=== PATIENT | male | born 1960 | race Caucasian/White ===

== ENCOUNTER 2022-11-14 16:38 | Inpatient (IN) ==
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
[2022-11-14] MEDS ORDERED: ACETAMINOPHEN 325 MG TABLET PO ONE (17:01)
[2022-11-14] MEDS ORDERED: HYDROmorphone 0.5 MG/0.5 ML SYRINGE IV ONE (17:01)
[2022-11-14] MEDS ORDERED: VANCOMYCIN 1,000 MG in 0.9 % SODIUM CHLORIDE 250 ML IV ONE (17:12)
[2022-11-14] MEDS ORDERED: PIPERACILLIN SODIUM/TAZOBACTAM 3.375 GM in DEXTROSE 5% IN WATER 50 ML IV SCH (17:15)
[2022-11-14 17:31] LABS: POC Calcium, Ionized 1.2 (1.16-1.32); POC Creatinine 0.7 (0.6-1.2); POC Potassium 3.9 (3.3-5.1)
--- NOTE | 2022-11-14 17:52 | XRay Report ---
HISTORY: Fever, former smoker, abdominal pain and vomiting blood FINDINGS: Heart is mildly enlarged but magnified by portable technique. There is no congestive heart failure or pleural effusion. Behind the left heart border there is a wedge-shaped band of consolidated lung parenchyma which is larger today than it had been on 08/19/16. This could be a combination of scar and atelectasis. The remainder of the lung [place] are clear. Aorta is mildly tortuous. There is moderate arthritis in the right shoulder. Humeral head is subluxed superiorly suggesting a rotator cuff tear. IMPRESSION: Mild cardiomegaly Scar versus atelectasis in the left lower lobe Interpreted and Authenticated by: Erickson De La Rosa 11/14/22
[2022-11-14 17:55] LABS: Basophils # (Auto) 0.03 K/mcL (0.00-0.30); Basophils % (Auto) 0.3 % (0.0-2.0); Eosinophils # (Auto) 0 K/mcL (0.00-0.70); Eosinophils % (Auto) 0 % (0.0-7.0); Hematocrit 43.4 % (40.1-51.0); Hemoglobin 13.8 g/dL (13.7-17.5); Lymphocytes # (Auto) 1.05 K/mcL (1.50-4.80); Lymphocytes % (Auto) 9.9 % (15.5-49.0); Mean Cell Volume 90.6 fL (80.0-100.0); Mean Corpuscular HGB Conc 31.8 g/dL (31.0-36.0); Mean Platelet Volume 9.1 fL (8.8-12.5); Monocytes # (Auto) 0.54 K/mcL (0.10-0.90); Monocytes % (Auto) 5.1 % (1.0-12.0); Neutrophils % (Auto) 84.2 % (38.0-78.0); Platelet Count 377 K/mcL (140-440); RBC 4.79 M/mcL (4.63-6.08); Red Cell Distribution Width 14.8 % (11.5-14.5); WBC 10.6 K/mcL (4.5-11.0)
[2022-11-14 18:00] LABS: Appearance,Urine TURBID (Clear); Bilirubin,Urine Negative (Negative); Color,Urine YELLOW; Culture Indicated,Urine yes; Glucose,Urine (UA) Negative (Negative); Ketones,Urine Negative (Negative); Leukocyte Esterase,Urine 250 /uL (Negative); Nitrate,Urine POS (Negative); Protein,Urine 100 mg/dL (Negative); Specific Gravity,Urine 1.017 (1.000-1.035); Urine RBC 35 /hpf (0-3); Urine Squamous Epithelial Cell 0 /hpf (0-4); Urine WBC > 182 /hpf (0-4); Urobilinogen,Urine Negative
[2022-11-14] MEDS ORDERED: ONDANSETRON 4 MG/2 ML VIAL IV ONE (18:00)
[2022-11-14 18:08] LABS: Prothrombin Time 13.5 sec (11.9-14.5)
[2022-11-14 18:21] LABS: ALT/SGPT 37 U/L (<40); AST/SGOT 66 U/L (<40); Albumin 3.7 gm/dL (3.2-5.2); Alkaline Phosphatase 146 U/L (39-117); Bilirubin,Direct 0.2 mg/dL (<0.3); Bilirubin,Total 0.7 mg/dL (0.1-1.0); Globulin 4.2 gm/dL (2.2-3.7)
[2022-11-14] MEDS ORDERED: PANTOPRAZOLE 40 MG VIAL IV ONE (18:32)
[2022-11-14] MEDS ORDERED: MAG HYDROX/AL HYDROX/SIMETH 30 ML ORAL.SUSP PO ONE (18:32)
--- NOTE | 2022-11-14 19:53 | Internal Med History&Physical ---
HPI History of Present Illness Patient information: Note initiated : 11/14/22 at 7:47 pm Service Date, if different from initiated Date: [] Patient: Clarence Verdugo a 62 y/o M admitted on for Abd. Pain/Vomited Blood. Chief Complaint: [Abdominal pain] Chief complaint: Hematemesis History of present illness: Mr. Verdugo is a 62 year old M with a past medical history significant for paraplegia, decubitus wounds, suprapubic catheter, seizures, and insulin- dependent diabetes mellitus who presents to the hospital with 3 to 4-day history of abdominal discomfort, inappetence associated with nausea and vomiting. The patient overall is a poor historian and simply states that he was feeling unwell over the last several days. He has not been eating or drinking much. He denies NSAID or aspirin use. He denies any history of heavy drinking. The patient states that he does have a prior history of GERD however does not take medications for acid reflux. He does have a suprapubic catheter in place which was recently changed 1 week ago he states. He comes from adult family home. On arrival he was hemodynamically stable and afebrile. His white blood cell count was 10.6, H&H was 13.8 and 43.4 and his creatinine was 0.7. His UA was grossly abnormal. His lactic acid was elevated at 2.8. He was found to have a blood pressure of 90/53 and a heart rate of 100 bpm. The hospital service was asked admit the patient for further management and evaluation Review of Systems All systems: reviewed and no additional remarkable complaints except as stated Constitutional Constitutional: Present as per HPI EENT Eyes: Present as per HPI; Absent blurry vision Cardiovascular Cardiovascular: Present as per HPI; Absent chest pain, dyspnea, dyspnea on exertion, leg edema or palpatations Respiratory Respiratory: Present as per HPI; Absent cough, dyspnea, dyspnea on exertion, wheezing or stridor Gastrointestinal Gastrointestinal: Present as per HPI; Absent abdominal pain, diarrhea, dysphagia, hematemesis, melena, nausea or vomiting Musculoskeletal Musculoskeletal: Present as per HPI; Absent joint swelling, limited range of motion, muscle cramps, muscle weakness or myalgias Integumentary Integumentary: Present as per HPI; Absent erythema, new lesions, rash or wounds Neurological Neurological: Present as per HPI; Absent abnormal gait, behavioral changes, focal weakness, headache(s), loss of vision, numbness, sensory deficit or syncope Endocrine Endocrine: Absent change in body appearance, fatigue or heat intolerance Hematologic/Lymphatic Hematologic/Lymphatic: Present as per HPI PFSH PFSH All Active Problems (Updated 11/14/22 @ 19:39 by Zeke Martins MD) Sepsis due to urinary tract infection (Acute) Acute upper gastrointestinal bleeding (Acute) Chronic paraplegia (Acute) Obesity (BMI 30.0-34.9) (Acute) Spasticity (Chronic) Encounter for wound care (Acute) Cellulitis (Acute) Complicated UTI (urinary tract infection) (Acute) Decubitus skin ulcer (Acute) Spinal cord injury (Chronic) Chronic pain (Chronic) Cellulitis (Chronic) Pleural effusion on left (Chronic) Depression (Chronic) Suprapubic catheter (Chronic) Presence of intrathecal baclofen pump (Chronic) Hx of urinary tract infection (Chronic) Urinary retention (Chronic) Myalgia and myositis (Chronic) Shoulder pain (Chronic) Seizures (Chronic) Pressure ulcer (Chronic) Paraplegia (Chronic) Open wound of toe (Chronic) Neurogenic bladder (Chronic) Hypertension, essential (Chronic) Hyperlipidemia (Chronic) Gastroesophageal reflux (Chronic) Fatigue (Chronic) Esophagus disorder (Chronic) Diarrhea (Chronic) Decubitus ulcer, buttock (Chronic) Constipation (Chronic) Cardiomegaly (Chronic) 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) Anxiety (Chronic) Anemia (Chronic) Abnormal glucose (Chronic) Medical History Abdominal pain, epigastric 09/20/2012 Abnormal glucose 10/19/2011 Anemia 07/15/2012 Anxiety Autonomic dysreflexia 08/24/2014 Bladder neck obstruction Calculus of ureter and kidneys Cardiomegaly 08/01/14 [place] Cellulitis Cellulitis Chronic pain Complicated UTI (urinary tract infection) Constipation 09/07/2014 Decubitus skin ulcer Decubitus ulcer, buttock Depression Diarrhea 09/07/2014 Drug overdose 08/07/15 Encounter for wound care Esophagus disorder esophagitis Fatigue 12/07/2014 Fitting and adjustment of urinary device Gastroesophageal reflux Hx MRSA infection Hx of urinary tract infection Hyperlipidemia Hypertension, essential Myalgia and myositis 09/07/2014 Neurogenic bladder suprapubic tube Open wound of toe Chastity boots Paraplegia T-6 Pleural effusion on left Pneumonia 06/05/2012 in-pt at [facility] for left basilar infiltrate/effusion Pressure ulcer buttocks. feet. Seizures Shoulder pain 04/23/2013 Spasticity With intrathecal pump in place Spinal cord injury With chronic spasticity Urinary retention now has suprapubic catheter Weight loss 09/20/2012 Surgical History History of back surgery spinal infusion at T6 level; rods taken out in 1981 History of right hip replacement Hx of esophagogastroduodenoscopy 04/08/09 Esophageal dysmotility Hx of oral surgery 08/30/2012 cadaver bone placed in upper jaw and implants placed along with sinus lift Hx of skin graft multiple PICC (peripherally inserted central catheter) in place 08/31/2013 Presence of intrathecal baclofen pump Suprapubic catheter Family History father Atherosclerosis of coronary artery Family history of diabetes mellitus mother Atherosclerosis of coronary artery grandfather (paternal) Family history of malignant neoplasm colon cancer grandmother (maternal) Family history of malignant neoplasm grandmother (paternal) Family history of malignant neoplasm Social History household members: alone housing: house lives independently: Yes marital status: education level: college occupational status: disabled occupation: teacher other: T-6 paraplegia smoking status: Former smoker alcohol intake frequency: a few times a month substance use type: does not use MEDS/ALLERGIES Home Medications and Allergies Home Medications Medication Instructions Recorded Confirmed Type ferrous gluconate 324 mg (36 mg 648 mg PO QDAY #60 tabs 11/09/15 09/26/22 Rx iron) tablet paroxetine HCl 40 mg tablet 40 mg PO QDAY #30 tabs 02/29/16 09/26/22 Rx bisacodyl 10 mg rectal suppository 10 mg NM ONCE 09/22/16 09/26/22 History (Dulcolax (bisacodyl)) cholecalciferol (vitamin D3) 10 400 unit PO QDAY 09/22/16 09/26/22 History mcg (400 unit) capsule cyanocobalamin (vitamin B-12) 500 500 mcg PO QDAY 09/22/16 09/26/22 History mcg tablet levetiracetam 500 mg tablet 250 mg PO BID #30 tabs 09/22/16 09/26/22 Rx potassium chloride 10 mEq 10 meq PO QDAY 09/22/16 09/26/22 History capsule,extended release torsemide 10 mg tablet 20 mg PO BID 11/07/16 09/26/22 History baclofen 5 mg tablet 5 mg PO QID 11/20/19 09/26/22 History bisacodyl 5 mg tablet,delayed 5 mg PO .COMPLEX 11/20/19 09/26/22 History release (Dulcolax (bisacodyl)) docusate sodium 100 mg tablet 100 mg PO .COMPLEX 11/20/19 09/26/22 History gabapentin 300 mg capsule 300 mg PO .COMPLEX 11/20/19 09/26/22 History glucagon HCl 1 mg solution for See Rx Instructions subcut 11/20/19 09/26/22 History injection (Glucagon (HCl) .COMPLEX PRN Emergency Kit) insulin aspart U-100 100 unit/mL See Rx Instructions subcut .COMPLEX 11/20/19 09/26/22 History (3 mL) subcutaneous pen (Novolog FlexPen U-100 Insulin aspart) loratadine 10 mg capsule 10 mg PO .COMPLEX 11/20/19 09/26/22 History metformin 500 mg tablet 500 mg PO .COMPLEX 11/20/19 09/26/22 History multivitamin See Rx Instructions PO .COMPLEX 11/20/19 09/26/22 History ropinirole 0.25 mg tablet 0.25 mg PO .COMPLEX 11/20/19 09/26/22 History baclofen 10 mg tablet 10 mg PO QHS PRN 06/21/21 09/26/22 History calcium carbonate 400 mg calcium 400 mg PO Q4H 06/21/21 09/26/22 History (1,000 mg) chewable tablet (Tums Ultra) hydrocodone 5 mg-acetaminophen 325 1 tab PO QID PRN 06/21/21 09/26/22 History mg tablet lactobacillus combination no.4 3 3,000 mmu cells PO QDAY 06/21/21 09/26/22 History billion cell capsule (Probiotic) magnesium hydroxide 2,400 mg/10 mL 5 ml PO QDAY PRN 06/21/21 09/26/22 History oral suspension (Milk Of Magnesia Concentrated) ondansetron 4 mg disintegrating 4 mg PO Q4H 06/21/21 09/26/22 History tablet oxybutynin chloride 5 mg tablet 5 mg PO BID 06/21/21 09/26/22 History phenol ea miscellaneous 06/21/21 09/26/22 History polyethylene glycol 3350 17 17 g PO QDAY 06/21/21 09/26/22 History gram/dose oral powder (Miralax) simethicone 80 mg chewable tablet 80 mg PO TID-QID PRN 06/21/21 09/26/22 History (Gas Relief (simethicone)) sodium phosphates 19 gram-7 118 ml NM ONCE 06/21/21 09/26/22 History gram/118 mL enema (Fleet Enema) Allergies Allergy/AdvReac Type Severity Reaction Status Date / Time Sulfa (Sulfonamide Allergy Intermediate Rash Verified 11/14/22 16:47 Antibiotics) doxycycline Allergy Mild Rash Verified 11/14/22 17:22 ciprofloxacin [From Cipro] AdvReac Severe Tendonitis Verified 11/14/22 17:22 cephalexin [From Keflex] AdvReac Mild Diarrhea Verified 11/14/22 17:22 EXAM Constitutional Vitals: Temp Pulse Resp BP Pulse Ox O2 Del Method 101.6 F H 99 H 15 90/53 91 Room Air 11/14/22 16:42 11/14/22 19:17 11/14/22 19:17 11/14/22 19:17 11/14/22 19:17 11/14/22 16:42 General appearance: average body habitus Head Head exam: Present atraumatic, normal inspection and normocephalic Eye Eye exam: Present EOMI, normal appearance and PERRL; Absent conjunctival injection ENT ENT exam: Present normal exam; Absent mucous membranes dry Neck Neck exam: Present full ROM; Absent lymphadenopathy Respiratory Respiratory exam: Present normal respiratory exam and CTAB; Absent decreased breath sounds, respiratory distress or wheezes Cardiovascular Cardiovascular exam: Present normal rate and rhythm and RRR; Absent JVD GI/Abdominal GI/Abdominal exam: Present normal bowel sounds and soft; Absent diminished bowel sounds, distended, guarding, mass, rebound or tenderness Neurological Exam Neurological exam: Present alert and oriented X3 Psychiatric Psychiatric exam: Present normal affect and normal mood Skin Skin exam: Present intact and warm; Absent erythema, pallor, petechiae or rash DATA Data Completed and Pending Labs: Labs from last 24 hours 11/14/22 11/14/2223 18:43 17:26 17:15 WBC RBC Hgb Hct POC Hct 43.0 MCV MCH MCHC RDW Plt Count MPV Immature Gran % (Auto) Neut % (Auto) Lymph % (Auto) [place] % (Auto) Eos % (Auto) Baso % (Auto) Lymph # (Auto) [place] # (Auto) Eos # (Auto) Baso # (Auto) Immature Gran # Absolute Neutrophils PT INR POC VBG pH 7.44 H POC VBG pCO2 at Temp 42.1 POC VBG pO2 36 POC VBG HCO3 28.3 H POC VBG Total CO2 30.0 H POC Venous O2 Sat 71.0 H POC VBG Base Excess 4.0 H* VBG Lactic Acid 2.8 H POC Sodium 139 POC Potassium 3.9 POC Chloride 97 POC Total CO2 33.0 H POC BUN 26 H POC Creatinine 0.7 POC Glucose 226 H POC WB Ioniz Calcium 1.20 Total Bilirubin 0.7 Direct Bilirubin 0.2 AST 66 H ALT 37 Alkaline Phosphatase 146 H Total Protein 7.9 Albumin 3.7 Globulin 4.2 H Urine Color Urine Appearance Urine pH Ur Specific [place] Urine Protein Urine Glucose (UA) Urine Ketones Urine Occult Blood Urine Nitrate Urine Bilirubin Urine Urobilinogen Ur Leukocyte Esterase Urine RBC Urine WBC Ur Squamous Epith Cells Urine Bacteria Ur Culture Indicated? 11/14/22 11/14/22 11/14/22 17:15 17:15 16:55 WBC 10.6 RBC 4.79 Hgb 13.8 Hct 43.4 POC Hct MCV 90.6 MCH 28.8 MCHC 31.8 RDW 14.8 H Plt Count 377 MPV 9.1 Immature Gran % (Auto) 0.5 Neut % (Auto) 84.2 H Lymph % (Auto) 9.9 L [place] % (Auto) 5.1 Eos % (Auto) 0 Baso % (Auto) 0.3 Lymph # (Auto) 1.05 L [place] # (Auto) 0.54 Eos # (Auto) 0 Baso # (Auto) 0.03 Immature Gran # 0.05 Absolute Neutrophils 8.97 H PT 13.5 INR 1.0 POC VBG pH POC VBG pCO2 at Temp POC VBG pO2 POC VBG HCO3 POC VBG Total CO2 POC Venous O2 Sat POC VBG Base Excess VBG Lactic Acid POC Sodium POC Potassium POC Chloride POC Total CO2 POC BUN POC Creatinine POC Glucose POC WB Ioniz Calcium Total Bilirubin Direct Bilirubin AST ALT Alkaline Phosphatase Total Protein Albumin Globulin Urine Color Yellow Urine Appearance Turbid A Urine pH 7.0 Ur Specific [place] 1.017 Urine Protein 100 A Urine Glucose (UA) Negative Urine Ketones Negative Urine Occult Blood 0.20 Urine Nitrate Pos A Urine Bilirubin Negative Urine Urobilinogen Negative Ur Leukocyte Esterase 250 A Urine RBC 35 H Urine WBC > 182 H Ur Squamous Epith Cells 0 Urine Bacteria None Ur Culture Indicated? yes A/P Assessment and plan (1) Acute upper gastrointestinal bleeding: Status: Acute (2) Chronic paraplegia: Status: Acute (3) Obesity (BMI 30.0-34.9): Status: Acute (4) Complicated UTI (urinary tract infection): Status: Acute Narrative A/P Narrative: At this point, the patient's differential for hematemesis is quite broad. He is not anemic and his H&H is stable. He is not on blood thinners. There is no coagulopathy to reverse. He will be kept n.p.o., started on IV fluids, and gastroenterology will be consulted for possible EGD tomorrow morning. Will be started on Protonix 40 mg IV twice daily. In terms of his complicated urinary tract infection, it is recommended that his [place] catheter be replaced, and he will be started on cefepime while his blood cultures and urine cultures are pending. Medication reconciliation is pending. He would like to be full code and his power of prosecuting attorney is his brother who is out of town. Time Spent With Patient Time: Total time spent is greater than 50% in coordination of care (as documented) at patient's floor/unit and/or counseling patient: Initial: Total time with patient: 55 - 74 minutes
[2022-11-14] MEDS ORDERED: ACETAMINOPHEN 325 MG TABLET PO PRN (21:41)
[2022-11-14] MEDS: SENNOSIDES 1 TABLET PO SCH (22:24)
[2022-11-14] MEDS: DOCUSATE SODIUM 100 MG CAPSULE PO SCH (22:24)
[2022-11-14] MEDS: CEFEPIME 2 GM VIAL IV SCH (22:25)
[2022-11-14] MEDS: 0.9 % SODIUM CHLORIDE 10 ML SYRINGE IV SCH (22:26)
[2022-11-14] MEDS: LACTATED RINGERS 1,000 ML IV SCH (22:33)
[2022-11-14] MEDS: ONDANSETRON 4 MG/2 ML VIAL IV PRN (23:31)
[2022-11-15] MEDS: HYDROcodone/APAP 5/325MG TABLET PO PRN ×4 (03:06→17:07)
[2022-11-15] MEDS: CEFEPIME 2 GM VIAL IV SCH ×3 (05:51→22:58)
[2022-11-15] MEDS: 0.9 % SODIUM CHLORIDE 10 ML SYRINGE IV SCH ×3 (05:51→22:58)
[2022-11-15 06:40] LABS: Basophils # (Auto) 0.02 K/mcL (0.00-0.30); Basophils % (Auto) 0.2 % (0.0-2.0); Eosinophils # (Auto) 0.01 K/mcL (0.00-0.70); Eosinophils % (Auto) 0.1 % (0.0-7.0); Hematocrit 36.6 % (40.1-51.0); Hemoglobin 11.7 g/dL (13.7-17.5); Lymphocytes # (Auto) 1.73 K/mcL (1.50-4.80); Lymphocytes % (Auto) 20.6 % (15.5-49.0); Mean Cell Volume 89.9 fL (80.0-100.0); Mean Platelet Volume 8.7 fL (8.8-12.5); Monocytes # (Auto) 0.94 K/mcL (0.10-0.90); Monocytes % (Auto) 11.2 % (1.0-12.0); Neutrophils % (Auto) 67.3 % (38.0-78.0); Platelet Count 268 K/mcL (140-440); RBC 4.07 M/mcL (4.63-6.08); Red Cell Distribution Width 14.6 % (11.5-14.5); WBC 8.4 K/mcL (4.5-11.0)
[2022-11-15 06:54] LABS: Blood Urea Nitrogen 23 mg/dL (8-23); Calcium 9.2 mg/dL (8.6-10.4); Carbon Dioxide 30 mmol/L (22-30); Chloride 102 mmol/L (96-108); Glomerular Filtration Rate 101; Glucose 182 mg/dL (70-105)
[2022-11-15] MEDS: LACTATED RINGERS 1,000 ML IV SCH ×2 (08:25→17:07)
[2022-11-15] MEDS: PANTOPRAZOLE 40 MG VIAL IV SCH ×2 (08:25→17:07)
[2022-11-15] MEDS: DOCUSATE SODIUM 100 MG CAPSULE PO SCH ×2 (08:26→20:23)
[2022-11-15] MEDS ORDERED: KETAMINE 50 MG/ML ML IV PRN ×2 (08:40→08:41)
[2022-11-15] MEDS ORDERED: MIDAZOLAM 2 MG/2 ML VIAL IV SCH ×2 (08:45)
[2022-11-15] MEDS ORDERED: PROPOFOL 200 MG/20 ML VIAL IV SCH ×2 (08:45)
--- NOTE | 2022-11-15 08:53 | Internal Medicine Consult Note ---
HPI Date of Consult Consult Date: 11/15/22 Requesting physician: Kendall Dickson Primary Care Provider: ILDA Gay Consult Narrative Patient Information: Note initiated : 11/15/22 at 8:43 am Service Date, if different from initiated Date: [] Patient: Clarence Verdugo 62 y/o M admitted on 11/14/22 for Abd. Pain/Vomited Blood. Chief Complaint: [] 62 year old white male w/ quadriplegia, IDDM, obesity, suprapubic catheter, chronic pain syndrome who presents for evaluation of a 1 day history of coffee ground emesis. For the last several days, he has had trouble with malaise and anorexia. He was passing a large, hard BM and began to have epigastric pain, followed by coffee ground emesis x 3. He has a remote history of GERD requiring esophageal dilatation by Dr. Sutton "decades ago" but is not currently on PPI therapy. he denies NSAID or ASA use. Today, no further emesis, coffeeground or otherwise, and no melena. Hgb dropped from 13.8 to 11.7. BUN 23 Cr 0.7. He has concurrent complicated UTI. He has received IV pantoprazole on admission. Requesting IV pain medication, but I reassured him he could take his usual oral hydrocodone prior to EGD. He also complains of a long history of intermittent dysphagia to solids. He has frequent postprandial belching. He does not typically take H2RA or PPI. Chief complaint: coffee ground emesis, epigastric pain cc:: CC: Kendall Dickson MD Review of Systems All systems: reviewed and no additional remarkable complaints except as stated PFSH PFSH All Active Problems (Updated 11/14/22 @ 19:39 by Zeke Martins MD) Sepsis due to urinary tract infection (Acute) Acute upper gastrointestinal bleeding (Acute) Chronic paraplegia (Acute) Obesity (BMI 30.0-34.9) (Acute) Spasticity (Chronic) Encounter for wound care (Acute) Cellulitis (Acute) Complicated UTI (urinary tract infection) (Acute) Decubitus skin ulcer (Acute) Spinal cord injury (Chronic) Chronic pain (Chronic) Cellulitis (Chronic) Pleural effusion on left (Chronic) Depression (Chronic) Suprapubic catheter (Chronic) Presence of intrathecal baclofen pump (Chronic) Hx of urinary tract infection (Chronic) Urinary retention (Chronic) Myalgia and myositis (Chronic) Shoulder pain (Chronic) Seizures (Chronic) Pressure ulcer (Chronic) Paraplegia (Chronic) Open wound of toe (Chronic) Neurogenic bladder (Chronic) Hypertension, essential (Chronic) Hyperlipidemia (Chronic) Gastroesophageal reflux (Chronic) Fatigue (Chronic) Esophagus disorder (Chronic) Diarrhea (Chronic) Decubitus ulcer, buttock (Chronic) Constipation (Chronic) Cardiomegaly (Chronic) 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) Anxiety (Chronic) Anemia (Chronic) Abnormal glucose (Chronic) Medical History Abdominal pain, epigastric 09/20/2012 Abnormal glucose 10/19/2011 Anemia 07/15/2012 Anxiety Autonomic dysreflexia 08/24/2014 Bladder neck obstruction Calculus of ureter and kidneys Cardiomegaly 08/01/14 [place] Cellulitis Cellulitis Chronic pain Complicated UTI (urinary tract infection) Constipation 09/07/2014 Decubitus skin ulcer Decubitus ulcer, buttock Depression Diarrhea 09/07/2014 Drug overdose 08/07/15 Encounter for wound care Esophagus disorder esophagitis Fatigue 12/07/2014 Fitting and adjustment of urinary device Gastroesophageal reflux Hx MRSA infection Hx of urinary tract infection Hyperlipidemia Hypertension, essential Myalgia and myositis 09/07/2014 Neurogenic bladder suprapubic tube Open wound of toe Chastity boots Paraplegia T-6 Pleural effusion on left Pneumonia 06/05/2012 in-pt at [facility] for left basilar infiltrate/effusion Pressure ulcer buttocks. feet. Seizures Shoulder pain 04/23/2013 Spasticity With intrathecal pump in place Spinal cord injury With chronic spasticity Urinary retention now has suprapubic catheter Weight loss 09/20/2012 Surgical History History of back surgery spinal infusion at T6 level; rods taken out in 1980 History of right hip replacement Hx of esophagogastroduodenoscopy 04/08/09 Esophageal dysmotility Hx of oral surgery 08/30/2012 cadaver bone placed in upper jaw and implants placed along with sinus lift Hx of skin graft multiple PICC (peripherally inserted central catheter) in place 08/31/2013 Presence of intrathecal baclofen pump Suprapubic catheter Family History father Atherosclerosis of coronary artery Family history of diabetes mellitus mother Atherosclerosis of coronary artery grandfather (paternal) Family history of malignant neoplasm colon cancer grandmother (maternal) Family history of malignant neoplasm grandmother (paternal) Family history of malignant neoplasm Social History household members: alone housing: house lives independently: Yes marital status: education level: college occupational status: disabled occupation: teacher other: T-6 paraplegia smoking status: Former smoker alcohol intake frequency: a few times a month substance use type: does not use MEDS/ALLERGIES Home Medications and Allergies Home Medications Medication Instructions Recorded Confirmed Type bisacodyl 10 mg rectal suppository 10 mg WI ONCE PRN Constipation 09/22/16 11/15/22 History (Dulcolax (bisacodyl)) levetiracetam 500 mg tablet 250 mg PO BID #30 tabs 09/22/16 11/15/22 Rx potassium chloride 10 mEq 10 meq PO BIDCC 09/22/16 11/15/22 History capsule,extended release torsemide 10 mg tablet 20 mg PO BID 11/07/16 11/15/22 History baclofen 5 mg tablet 15 mg PO QID 11/20/19 11/15/22 History bisacodyl 5 mg tablet,delayed 5 mg PO .COMPLEX 11/20/19 11/15/22 History release (Dulcolax (bisacodyl)) docusate sodium 100 mg tablet 100 mg PO BID 11/20/19 11/15/22 History gabapentin 300 mg capsule 300 mg PO Q8H 11/20/19 11/15/22 History glucagon HCl 1 mg solution for 1 mg IM PRN PRN Hypoglycemia 11/20/19 11/15/22 History injection (Glucagon (HCl) Emergency Kit) loratadine 10 mg capsule 10 mg PO HS 11/20/19 11/15/22 History metformin 500 mg tablet 1,000 mg PO BIDCC 11/20/19 11/15/22 History baclofen 10 mg tablet 10 mg PO QHS PRN Muscle Spasm 06/21/21 11/15/22 History calcium carbonate 400 mg calcium 400 mg PO Q4H PRN Heartburn 06/21/21 11/15/22 History (1,000 mg) chewable tablet (Tums Ultra) hydrocodone 5 mg-acetaminophen 325 1 tab PO QID 06/21/21 11/15/22 History mg tablet ondansetron 4 mg disintegrating 4 mg PO Q4H PRN Nausea 06/21/21 11/15/22 History tablet oxybutynin chloride 5 mg tablet 5 mg PO BID 06/21/21 11/15/22 History polyethylene glycol 3350 17 17 g PO BID 06/21/21 11/15/22 History gram/dose oral powder (Miralax) simethicone 80 mg chewable tablet 160 mg PO QID 06/21/21 11/15/22 History (Gas Relief (simethicone)) sodium phosphates 19 gram-7 118 ml WI ONCE PRN Constipation 06/21/21 11/15/22 History gram/118 mL enema (Fleet Enema) fentanyl 25 mcg transdermal Q72H 11/14/22 11/15/22 History glipizide 5 mg tablet, extended 5 mg PO ACB 11/14/22 11/15/22 History release 24 hr methenamine hippurate 1 g PO 0630,1430 11/14/22 11/15/22 History bisacodyl 10 mg rectal suppository 10 mg WI QDAY PRN Constipation 11/15/22 11/15/22 History (Dulcolax (bisacodyl)) bisacodyl 5 mg tablet 10 mg PO PRN PRN Constipation 11/15/22 11/15/22 History carboxymethylcellulose sodium 0.5 1 drp ophthalmic (eye) BID 11/15/22 11/15/22 History % eye drops (Refresh Tears) hydrocodone 5 mg-acetaminophen 325 1 tab PO HS PRN Pain 11/15/22 11/15/22 History mg tablet hydrocortisone 1 % topical cream 1 applic topical DAILY rash 11/15/22 11/15/22 History magnesium 200 mg tablet 400 mg PO BID 11/15/22 11/15/22 History magnesium hydroxide 400 mg/5 mL 30 ml PO QDAY PRN Constipation 11/15/22 11/15/22 History oral suspension melatonin 3 mg tablet 3 mg PO HS PRN Insomnia 11/15/22 11/15/22 History multivitamin with minerals (Daily 1 tab PO DAILY 11/15/22 11/15/22 History Multivitamin-Minerals tablet) paroxetine HCl 40 mg tablet 40 mg PO HS 11/15/22 11/15/22 History phenol 1 ea miscellaneous Q2H PRN Sore 11/15/22 11/15/22 History Throat sennosides 8.6 mg tablet (senna) 17.2 mg PO BID 11/15/22 11/15/22 History Allergies Allergy/AdvReac Type Severity Reaction Status Date / Time Sulfa (Sulfonamide Allergy Intermediate Rash Verified 11/14/22 16:47 Antibiotics) doxycycline Allergy Mild Rash Verified 11/14/22 17:22 morphine Allergy Unknown Verified 11/14/22 20:03 tetracycline Allergy Unknown Verified 11/14/22 20:14 ciprofloxacin [From Cipro] AdvReac Severe Tendonitis Verified 11/14/22 17:22 cephalexin [From Keflex] AdvReac Mild Diarrhea Verified 11/14/22 17:22 EXAM Constitutional Vitals: Temp Pulse Resp BP Pulse Ox O2 Del Method 98.2 F 84 14 125/65 93 Room Air 11/15/22 02:48 11/15/22 02:48 11/15/22 02:48 11/15/22 02:48 11/15/22 02:48 11/15/22 02:48 General appearance: no acute distress and obese Head Head exam: Present atraumatic, normal inspection and normocephalic Eye Eye exam: Present normal appearance ENT ENT exam: Present normal exam Neck Neck exam: Present normal inspection Respiratory Respiratory exam: Present normal respiratory exam; Absent accessory muscle use Cardiovascular Cardiovascular exam: Present normal rate and rhythm; Absent gallop or rubs GI/Abdominal GI/Abdominal exam: Present normal bowel sounds, soft and tenderness (epigastric); Absent mass or organomegaly Expanded Lower Extremity Exam Lower Leg exam: Present abrasion (multiple decubiti with eschar) Neurological Exam Neurological exam: Present alert Psychiatric Psychiatric exam: Present normal affect and normal mood DATA Data Completed and Pending Labs: Labs from last 24 hours 11/15/22 11/15/22 11/14/22 05:39 05:39 22:19 WBC 8.4 RBC 4.07 L Hgb 11.7 L Hct 36.6 L POC Hct MCV 89.9 MCH 28.7 MCHC 32.0 RDW 14.6 H Plt Count 268 MPV 8.7 L Immature Gran % (Auto) 0.6 H Neut % (Auto) 67.3 Lymph % (Auto) 20.6 [place] % (Auto) 11.2 Eos % (Auto) 0.1 Baso % (Auto) 0.2 Lymph # (Auto) 1.73 [place] # (Auto) 0.94 H Eos # (Auto) 0.01 Baso # (Auto) 0.02 Immature Gran # 0.05 Absolute Neutrophils 5.66 PT INR POC VBG pH POC VBG pCO2 at Temp POC VBG pO2 POC VBG HCO3 POC VBG Total CO2 POC Venous O2 Sat POC VBG Base Excess VBG Lactic Acid 1.3 2.0 POC Sodium Sodium 139 POC Potassium Potassium 3.9 POC Chloride Chloride 102 Carbon Dioxide 30 POC Total CO2 Anion Gap 7.0 L POC BUN BUN 23 Creatinine 0.7 POC Creatinine GFR Calculation 101 Glucose 182 H POC Glucose Calcium 9.2 POC WB Ioniz Calcium Total Bilirubin Direct Bilirubin AST ALT Alkaline Phosphatase C-Reactive Protein 5.00 H Total Protein Albumin Globulin Urine Color Urine Appearance Urine pH Ur Specific [place] Urine Protein Urine Glucose (UA) Urine Ketones Urine Occult Blood Urine Nitrate Urine Bilirubin Urine Urobilinogen Ur Leukocyte Esterase Urine RBC Urine WBC Ur Squamous Epith Cells Urine Bacteria Ur Culture Indicated? 11/14/22 11/14/22 11/14/22 18:43 17:26 17:15 WBC RBC Hgb Hct POC Hct 43.0 MCV MCH MCHC RDW Plt Count MPV Immature Gran % (Auto) Neut % (Auto) Lymph % (Auto) [place] % (Auto) Eos % (Auto) Baso % (Auto) Lymph # (Auto) [place] # (Auto) Eos # (Auto) Baso # (Auto) Immature Gran # Absolute Neutrophils PT INR POC VBG pH 7.44 H POC VBG pCO2 at Temp 42.1 POC VBG pO2 36 POC VBG HCO3 28.3 H POC VBG Total CO2 30.0 H POC Venous O2 Sat 71.0 H POC VBG Base Excess 4.0 H* VBG Lactic Acid 2.8 H POC Sodium 139 Sodium POC Potassium 3.9 Potassium POC Chloride 97 Chloride Carbon Dioxide POC Total CO2 33.0 H Anion Gap POC BUN 26 H BUN Creatinine POC Creatinine 0.7 GFR Calculation Glucose POC Glucose 226 H Calcium POC WB Ioniz Calcium 1.20 Total Bilirubin 0.7 Direct Bilirubin 0.2 AST 66 H ALT 37 Alkaline Phosphatase 146 H C-Reactive Protein Total Protein 7.9 Albumin 3.7 Globulin 4.2 H Urine Color Urine Appearance Urine pH Ur Specific [place] Urine Protein Urine Glucose (UA) Urine Ketones Urine Occult Blood Urine Nitrate Urine Bilirubin Urine Urobilinogen Ur Leukocyte Esterase Urine RBC Urine WBC Ur Squamous Epith Cells Urine Bacteria Ur Culture Indicated? 11/14/22 11/14/22 11/14/22 17:15 17:15 16:55 WBC 10.6 RBC 4.79 Hgb 13.8 Hct 43.4 POC Hct MCV 90.6 MCH 28.8 MCHC 31.8 RDW 14.8 H Plt Count 377 MPV 9.1 Immature Gran % (Auto) 0.5 Neut % (Auto) 84.2 H Lymph % (Auto) 9.9 L [place] % (Auto) 5.1 Eos % (Auto) 0 Baso % (Auto) 0.3 Lymph # (Auto) 1.05 L [place] # (Auto) 0.54 Eos # (Auto) 0 Baso # (Auto) 0.03 Immature Gran # 0.05 Absolute Neutrophils 8.97 H PT 13.5 INR 1.0 POC VBG pH POC VBG pCO2 at Temp POC VBG pO2 POC VBG HCO3 POC VBG Total CO2 POC Venous O2 Sat POC VBG Base Excess VBG Lactic Acid POC Sodium Sodium POC Potassium Potassium POC Chloride Chloride Carbon Dioxide POC Total CO2 Anion Gap POC BUN BUN Creatinine POC Creatinine GFR Calculation Glucose POC Glucose Calcium POC WB Ioniz Calcium Total Bilirubin Direct Bilirubin AST ALT Alkaline Phosphatase C-Reactive Protein Total Protein Albumin Globulin Urine Color Yellow Urine Appearance Turbid A Urine pH 7.0 Ur Specific [place] 1.017 Urine Protein 100 A Urine Glucose (UA) Negative Urine Ketones Negative Urine Occult Blood 0.20 Urine Nitrate Pos A Urine Bilirubin Negative Urine Urobilinogen Negative Ur Leukocyte Esterase 250 A Urine RBC 35 H Urine WBC > 182 H Ur Squamous Epith Cells 0 Urine Bacteria None Ur Culture Indicated? yes A/P Assessment and plan (1) Acute upper gastrointestinal bleeding: Plan: Will further evaluate his coffee ground emesis and dysphagia to solids with EGD. Differential diagnosis include PUD, hiatal hernia with simon's ulcer, angiodysplasia, peptic esophageal stricture, among others. Patient agrees to proceed. Further recommendations will be forthcoming following EGD. Status: Acute Time Spent With Patient Time: Total time spent is greater than 50% in coordination of care (as documented) at patient's floor/unit and/or counseling patient: Initial: Total time with patient: 40 - 54 minutes
[2022-11-15] MEDS ORDERED: fentaNYL 25 MCG PATCH TOPICAL SCH (10:00)
[2022-11-15] MEDS ORDERED: IOPAMIDOL 100 ML BOTTLE IV ONE (10:10)
--- NOTE | 2022-11-15 10:33 | Cat Scan Report ---
History: Abdominal pain and hematemesis TECHNIQUE: Following injection of intravenous nonionic contrast the patient was imaged during the portal venous phase from above the diaphragm through the symphysis pubis. Sagittal and coronal reformats were created. The radiation exposure was limited using dose reduction technology. FINDINGS: There is mild pulmonary fibrosis and bronchiectasis in the posterior basal segment right lower lobe and medial basal segment left lower lobe. The liver is mildly enlarged. Right lobe is 23 cm in length. There is moderate fatty infiltration. No liver mass or cirrhosis are detected. The spleen is normal in size and homogeneous. The gallbladder has been removed. There is fatty infiltration and atrophy of the pancreas. The adrenals are normal and symmetric. Patient has mild to moderate atrophy of the right kidney. There is a large staghorn calculus filling the renal pelvis and extending into all of the infundibula and many of the calyces. Within the pelvis the transverse diameter of the stone is 1.7 cm. There is no hydronephrosis. However, the right ureter is dilated and measures 1.3 cm. It tapers to normal caliber above the bladder. No stone is seen within the ureter. There are focal cortical scars in the lateral portion of the left kidney. A 1 cm cyst is present in the upper pole. There are three nonobstructing calyceal stones in the left kidney. Largest measures 8 mm. There is no hydronephrosis and the left ureter is decompressed. The urinary bladder is decompressed by a suprapubic catheter and cannot be evaluated. There are two bladder stones near the base of the bladder. Larger measures 5 x 10 mm. The stomach is abnormally distended with large amount gas. The wall of the stomach is normal in thickness. The small intestine is normal. Normal quantity of stool is present in the large intestine. There is concentric abnormal thickening of the wall of the distal sigmoid colon and rectum. The sigmoid measures up to 1.3 cm in thickness. The rectum measures up to 2 cm. No discrete mass is seen in the bowel. There are no diverticula. Severe degenerative changes are present throughout the thoracic and lumbar spine. Patient has a spinal stimulator. The power pack is in the right anterior abdominal wall and the electrodes extend into the lower thoracic spinal canal. There is a right hip prosthesis. Moderate arthritis is present in the left hip. No ascites or adenopathy are present. IMPRESSION: Bilateral kidney stones with a large staghorn calculus in the right kidney Atrophy of the right kidney and focal cortical scarring in the left kidney Dilated right ureter Bladder calculi. Hepatomegaly with fatty infiltration of the liver. Abnormal circumferential thickening of the wall of the sigmoid and rectum. This could be due to colitis. Neoplasm is less likely. Interpreted and Authenticated by: Erickson De La Rosa 11/15/22
[2022-11-15] MEDS: ONDANSETRON 4 MG/2 ML VIAL IV PRN (12:56)
--- NOTE | 2022-11-15 13:37 | Internal Med Progress Note ---
SUBJECTIVE Subjective Patient information: Note initiated : 11/15/22 at 1:35 pm Service Date, if different from initiated Date: [] Patient: Clarence Verdugo 62 y/o M admitted on 11/14/22 for Abd. Pain/Vomited Blood. Chief Complaint: [Nausea, coffee ground emesis ] Principal diagnosis: GIB, CAUTI Interval history: The patient was resting comfortably in bed. I was notified by the RN that he does have an old fentanyl patch. He is scheduled for EGD today. Constitutional Vitals: Vital Signs Temp Pulse Resp BP Pulse Ox O2 Del Method O2 Flow Rate 98.1 F 73 18 96/45 92 Room Air 0 11/15/22 12:11 11/15/22 12:11 11/15/22 12:11 11/15/22 12:11 11/15/22 12:11 11/15/22 12:11 11/15/22 12:11 Period Temp Pulse Resp BP Sys/[place] Pulse Ox O2 Del Method O2 Flow Rate Last 24 Hr 98.1 F-101.6 F 65-108 10-20 75-143/41-87 87-100 Nasal Cannula- Room Air 0-6 Intake and Output 11/15/22 11/15/22 11/15/22 03:59 11:59 19:59 Intake Total 0 987 Output Total 275 Balance -275 987 Weight 104.355 kg Intake & Output: Intake & Output 11/15/22 11/15/22 11/15/22 03:59 11:59 19:59 Intake Total 0 987 Output Total 275 Balance -275 987 Weight 104.355 kg Intake: IV 987 Lactated Ringers 1,000 ml @ 100 987 mls/hr IV .Q10H COUNT INCLUDES THE [facility] Rx#: [id number] Oral 0 Output: Urine Catheter Amount 275 Other: Urine Appearance Cloudy Cloudy Suprapubic Clear Cloudy Urine Color Dark Yellow Yellow Brown Suprapubic Yellow Yellow Brown Urine Odor Strong Suprapubic Normal Head Head exam: Present atraumatic and normal inspection Eye Eye exam: Present normal appearance ENT ENT exam: Present mucous membranes moist, normal exam and normal external ear exam Neck Neck exam: Present normal inspection Respiratory Respiratory exam: Present normal respiratory exam Cardiovascular Cardiovascular exam: Present normal rate and rhythm GI/Abdominal GI/Abdominal exam: Present normal bowel sounds Back Exam Back exam: Present normal inspection Neurological Exam Neurological exam: Present alert and oriented X3 Skin Skin exam: Present intact and warm OBJ DATA Labs 11/15/22 05:39 11/15/22 05:39 Labs: Abnormal Lab Results 11/15/22 11/15/22 11/14/22 05:39 05:39 18:43 RBC 4.07 L Hgb 11.7 L Hct 36.6 L RDW 14.6 H MPV 8.7 L Immature Gran % (Auto) 0.6 H Neut % (Auto) Lymph % (Auto) Lymph # (Auto) [place] # (Auto) 0.94 H Absolute Neutrophils POC VBG pH 7.44 H POC VBG HCO3 28.3 H POC VBG Total CO2 30.0 H POC Venous O2 Sat 71.0 H POC VBG Base Excess 4.0 H* VBG Lactic Acid 2.8 H POC Total CO2 Anion Gap 7.0 L POC BUN Glucose 182 H POC Glucose AST Alkaline Phosphatase C-Reactive Protein 5.00 H Globulin Urine Appearance Urine Protein Urine Nitrate Ur Leukocyte Esterase Urine RBC Urine WBC 11/14/22 11/14/22 11/14/22 17:26 17:15 17:15 RBC Hgb Hct RDW 14.8 H MPV Immature Gran % (Auto) Neut % (Auto) 84.2 H Lymph % (Auto) 9.9 L Lymph # (Auto) 1.05 L [place] # (Auto) Absolute Neutrophils 8.97 H POC VBG pH POC VBG HCO3 POC VBG Total CO2 POC Venous O2 Sat POC VBG Base Excess VBG Lactic Acid POC Total CO2 33.0 H Anion Gap POC BUN 26 H Glucose POC Glucose 226 H AST 66 H Alkaline Phosphatase 146 H C-Reactive Protein Globulin 4.2 H Urine Appearance Urine Protein Urine Nitrate Ur Leukocyte Esterase Urine RBC Urine WBC 11/14/22 16:55 RBC Hgb Hct RDW MPV Immature Gran % (Auto) Neut % (Auto) Lymph % (Auto) Lymph # (Auto) [place] # (Auto) Absolute Neutrophils POC VBG pH POC VBG HCO3 POC VBG Total CO2 POC Venous O2 Sat POC VBG Base Excess VBG Lactic Acid POC Total CO2 Anion Gap POC BUN Glucose POC Glucose AST Alkaline Phosphatase C-Reactive Protein Globulin Urine Appearance Turbid A Urine Protein 100 A Urine Nitrate Pos A Ur Leukocyte Esterase 250 A Urine RBC 35 H Urine WBC > 182 H Meds: Medications Acetaminophen (Acetaminophen 325 Mg Tablet) 650 mg PO Q6HP PRN; Protocol PRN Reason: Per Pain Protocol/Fever > 101 Hydrocodone Bitart/Acetaminophen (Hydrocodone/Apap 5/325mg Tablet) 1 tab PO Q 4HP PRN; Protocol PRN Reason: Per Pain Protocol Last Admin: 11/15/22 12:55 Dose: 1 tab Cefepime HCl (Cefepime 2 Gm Vial) 2 gm IV Q8H TACOS; Protocol Last Admin: 11/15/22 12:55 Dose: 2 gm Diagnostic Test (Pha) (Accu-Chek 1 Each Strip) 1 each FS UD PRN PRN Reason: DM Stop: 11/15/22 16:40 Docusate Sodium (Docusate Sodium 100 Mg Capsule) 100 mg PO BID TACOS Last Admin: 11/15/22 08:26 Dose: 100 mg Lactated Ringer's (Lactated Ringers) 1,000 mls @ 100 mls/hr IV .Q10H TACOS Last Admin: 11/15/22 08:25 Dose: 100 mls/hr Ketamine HCl (Ketamine 50 Mg/Ml Ml) 50 mg IV ONCE PRN PRN Reason: Sedation Stop: 11/15/22 16:40 Midazolam HCl (Midazolam 2 Mg/2 Ml Vial) 0 mg IV ONCE TACOS Stop: 11/15/22 16:40 Last Admin: 11/15/22 11:45 Dose: 2 mg Ondansetron HCl (Ondansetron 4 Mg/2 Ml Vial) 4 mg IV Q6HP PRN PRN Reason: Nausea And Vomiting Last Admin: 11/15/22 12:56 Dose: 4 mg Pantoprazole Sodium (Pantoprazole 40 Mg Vial) 40 mg IV BIDAC TACOS Last Admin: 11/15/22 08:25 Dose: 40 mg Propofol (Propofol 200 Mg/20 Ml Vial) 0 mg IV UD TACOS Stop: 11/15/22 16:40 Last Admin: 11/15/22 11:45 Dose: 180 mg Senna (Sennosides 1 Tablet) 2 tab PO HS COUNT INCLUDES THE [facility] Last Admin: 11/14/22 22:24 Dose: Not Given Sodium Chloride (0.9 % Sodium Chloride 10 Ml Syringe) 10 ml IV Q8 COUNT INCLUDES THE [facility] Last Admin: 11/15/22 05:51 Dose: 10 ml A/P Assessment and plan (1) Acute upper gastrointestinal bleeding: Status: Acute (2) Chronic paraplegia: Status: Acute (3) Obesity (BMI 30.0-34.9): Status: Acute (4) Complicated UTI (urinary tract infection): Status: Acute Narrative A/P Narrative: At this point, the patient's differential for hematemesis is quite broad. He is not anemic and his H&H is stable. He is not on blood thinners. There is no coagulopathy to reverse. He will be kept n.p.o., started on IV fluids, and gastroenterology will be consulted for possible EGD tomorrow morning. Will be started on Protonix 40 mg IV twice daily. In terms of his complicated urinary tract infection, it is recommended that his Blackwell catheter be replaced, and he will be started on cefepime while his blood cultures and urine cultures are pending. Medication reconciliation is pending. He would like to be full code and his power of tax attorney is his brother who is out of town. 11/15: Scheduled for EGD today to rule out PUD/gastritis. He remains n.p.o. with LR at 100 cc an hour. The patient's blood pressure is still on the low side at 96/45. Of note he remains on cefepime and his urine culture and blood culture are pending. Obtained a CT abdomen pelvis with contrast which revealed right- sided staghorn calculi, bladder calculi and dilated ureter. I discussed the case with Dr. Dickson from urology who reviewed the CT imaging himself and recommended no surgical intervention at this time but close outpatient follow- up. Time Spent With Patient Time: Total time spent is greater than 50% in coordination of care (as documented) at patient's floor/unit and/or counseling patient: Subsequent: Total time with patient: 25 - 34 minutes QUALITY Stroke Symptom Onset Unknown: No VTE Deep Vein Thrombosis/Pulmonary Embolism Present on Admission: No
[2022-11-15] MEDS ORDERED: BACLOFEN 10 MG TABLET PO PRN (14:06)
[2022-11-15] MEDS: BACLOFEN 10 MG TABLET PO SCH ×2 (14:59→20:24)
[2022-11-15] MEDS: GABAPENTIN 300 MG CAPSULE PO SCH ×2 (15:15→20:23)
[2022-11-15] MEDS ORDERED: HYDROcodone/APAP 5/325MG TABLET PO SCH (17:00)
[2022-11-15] MEDS: SENNOSIDES 1 TABLET PO SCH (20:23)
[2022-11-15] MEDS: levETIRAcetam 500 MG TABLET PO SCH (20:23)
[2022-11-15] MEDS: OXYBUTYNIN CHLORIDE 5 MG TABLET PO SCH (20:23)
[2022-11-15] MEDS: PARoxetine 20 MG TABLET PO SCH (20:25)
[2022-11-16] MEDS: ONDANSETRON 4 MG/2 ML VIAL IV PRN (03:17)
[2022-11-16] MEDS: LACTATED RINGERS 1,000 ML IV SCH (03:17)
[2022-11-16] MEDS: 0.9 % SODIUM CHLORIDE 10 ML SYRINGE IV SCH ×3 (05:56→21:09)
[2022-11-16] MEDS: CEFEPIME 2 GM VIAL IV SCH ×3 (05:56→21:08)
[2022-11-16 06:26] LABS: Basophils # (Auto) 0.06 K/mcL (0.00-0.30); Basophils % (Auto) 0.8 % (0.0-2.0); Eosinophils % (Auto) 1.4 % (0.0-7.0); Hematocrit 35.2 % (40.1-51.0); Hemoglobin 10.7 g/dL (13.7-17.5); Lymphocytes # (Auto) 2.25 K/mcL (1.50-4.80); Lymphocytes % (Auto) 30.5 % (15.5-49.0); Mean Cell Volume 94.4 fL (80.0-100.0); Mean Corpuscular HGB Conc 30.4 g/dL (31.0-36.0); Monocytes # (Auto) 0.66 K/mcL (0.10-0.90); Neutrophils % (Auto) 57.2 % (38.0-78.0); Platelet Count 237 K/mcL (140-440); RBC 3.73 M/mcL (4.63-6.08); Red Cell Distribution Width 14.8 % (11.5-14.5); WBC 7.4 K/mcL (4.5-11.0)
[2022-11-16 06:50] LABS: Blood Urea Nitrogen 18 mg/dL (8-23); Calcium 8.3 mg/dL (8.6-10.4); Carbon Dioxide 25 mmol/L (22-30); Chloride 103 mmol/L (96-108); Glomerular Filtration Rate 101; Glucose 123 mg/dL (70-105)
--- NOTE | 2022-11-16 08:46 | EGD Procedure Note ---
EGD Procedure Notes Procedure Information Patient information: Note initiated : 11/16/22 at 8:45 am Patient: Clarence Verdugo 62 y/o M admitted on 11/14/22 for Abd. Pain/Vomited Blood. Date of Procedure: 11/15/22 Pre-Op Diagnosis: Dysphagia. Sepsis. Hematemesis. Paraplegic. Post-Op Diagnosis: Dysphagia. Resolving gastritis. Procedure: EGD with Bx Procedure Narrative: The procedure, alternatives and risks were discussed with the patient and the patient's questions were answered. With endoscopist-administered intravenous sedation, the Olympus video endoscope was introduced into the esophagus. The esophagus, stomach, and duodenum were examined sequentially. There appeared to be esophageal dysmotility. It is difficult to assess this endoscopically. There is no definite stricture. Mild erosions were seen in the proximal stomach. The stomach is large and long. No fresh bleeding and bleeding single bleeding site was identified. The gastric mucosa, antrum, pyloric ring, and duodenum otherwise appeared normal. Antral biopsy was taken for LIZBET test. A guide wire was placed through the scope. The scope was then withdrawn, leaving the guidewire in place. The esophagus was dilated with an Maldivian bougie 54 Guatemalan. Grafts/Implants: No Anesthesia: conscious sedation Findings: Dysphagia. Resolving gastritis. Complications: none Surgeon: Moises Sutton Estimated blood loss: 0 Specimens Removed/Pathology: none sent Condition: stable Disposition: same day Assessment: Dysphagia. Resolving gastritis.
[2022-11-16] MEDS ORDERED: HYDROCORTISONE CRM 1% TUBE 30GM TOPICAL PRN (09:00)
[2022-11-16] MEDS: OXYBUTYNIN CHLORIDE 5 MG TABLET PO SCH ×2 (09:26→21:08)
[2022-11-16] MEDS: BACLOFEN 10 MG TABLET PO SCH ×4 (09:26→21:08)
[2022-11-16] MEDS: GABAPENTIN 300 MG CAPSULE PO SCH ×3 (09:26→21:08)
[2022-11-16] MEDS: DOCUSATE SODIUM 100 MG CAPSULE PO SCH ×2 (09:27→21:08)
[2022-11-16] MEDS: PANTOPRAZOLE 40 MG VIAL IV SCH ×2 (09:27→17:23)
[2022-11-16] MEDS: levETIRAcetam 500 MG TABLET PO SCH ×2 (09:27→21:09)
[2022-11-16] MEDS: HYDROcodone/APAP 5/325MG TABLET PO PRN ×3 (09:27→19:43)
--- NOTE | 2022-11-16 10:11 | Internal Med Progress Note ---
SUBJECTIVE Subjective Patient information: Note initiated : 11/16/22 at 10:04 am Service Date, if different from initiated Date: [] Patient: Clarence Verdugo 62 y/o M admitted on 11/14/22 for Abd. Pain/Vomited Blood. Chief Complaint: [] Principal diagnosis: GIB, CAUTI Interval history: Patient underwent EGD yesterday, remained NPO and kept on IVF. He has no active complaints this morning. Continues to have pain seeking behavior Constitutional Vitals: Vital Signs Temp Pulse Resp BP Pulse Ox O2 Del Method O2 Flow Rate 98.0 F 60 18 117/66 95 Room Air 0 11/16/22 08:00 11/16/22 08:00 11/16/22 08:00 11/16/22 08:00 11/16/22 08:00 11/16/22 08:00 11/15/22 12:11 Period Temp Pulse Resp BP Sys/Macias Pulse Ox O2 Del Method O2 Flow Rate Last 24 Hr 97.6 F-98.3 F 60-81 10-73 75-129/41-73 92-100 Nasal Cannula- Room Air 0-6 Intake and Output 11/15/22 11/16/22 11/16/22 19:59 03:59 11:59 Intake Total 1430 1000 Output Total 450 Balance 1430 550 Weight 104.355 kg 105.914 kg Intake & Output: Intake & Output 11/15/22 11/16/22 11/16/22 19:59 03:59 11:59 Intake Total 1430 1000 Output Total 450 Balance 1430 550 Weight 104.355 kg 105.914 kg Intake: IV 870 1000 Lactated Ringers 1,000 ml @ 556 165 2975 mls/hr IV .Q10H [facility] Rx#: [id number] Oral 560 Output: Urine Catheter Amount 450 Other: Urine Appearance Cloudy Suprapubic Cloudy Urine Color Yellow Suprapubic Yellow Urine Odor Normal Suprapubic Normal Head Head exam: Present atraumatic and normal inspection Eye Eye exam: Present normal appearance ENT ENT exam: Present mucous membranes moist, normal exam and normal external ear exam Neck Neck exam: Present normal inspection Respiratory Respiratory exam: Present normal respiratory exam Cardiovascular Cardiovascular exam: Present normal rate and rhythm GI/Abdominal GI/Abdominal exam: Present normal bowel sounds Back Exam Back exam: Present normal inspection Neurological Exam Neurological exam: Present alert and oriented X3 Skin Skin exam: Present intact and warm OBJ DATA Labs 11/16/22 05:22 11/16/22 05:22 Labs: Abnormal Lab Results 11/16/22 11/16/22 11/15/22 05:22 05:22 05:39 RBC 3.73 L Hgb 10.7 L Hct 35.2 L MCHC 30.4 L RDW 14.8 H MPV Immature Gran % (Auto) 1.1 H Neut % (Auto) Lymph % (Auto) Lymph # (Auto) Barnes # (Auto) Immature Gran # 0.08 H Absolute Neutrophils POC VBG pH POC VBG HCO3 POC VBG Total CO2 POC Venous O2 Sat POC VBG Base Excess VBG Lactic Acid POC Total CO2 Anion Gap 7.0 L POC BUN Glucose 123 H 182 H POC Glucose Calcium 8.3 L AST Alkaline Phosphatase C-Reactive Protein 5.00 H Globulin Urine Appearance Urine Protein Urine Nitrate Ur Leukocyte Esterase Urine RBC Urine WBC 11/15/22 11/14/22 11/14/22 05:39 18:43 17:26 RBC 4.07 L Hgb 11.7 L Hct 36.6 L MCHC RDW 14.6 H MPV 8.7 L Immature Gran % (Auto) 0.6 H Neut % (Auto) Lymph % (Auto) Lymph # (Auto) Barnes # (Auto) 0.94 H Immature Gran # Absolute Neutrophils POC VBG pH 7.44 H POC VBG HCO3 28.3 H POC VBG Total CO2 30.0 H POC Venous O2 Sat 71.0 H POC VBG Base Excess 4.0 H* VBG Lactic Acid 2.8 H POC Total CO2 33.0 H Anion Gap POC BUN 26 H Glucose POC Glucose 226 H Calcium AST Alkaline Phosphatase C-Reactive Protein Globulin Urine Appearance Urine Protein Urine Nitrate Ur Leukocyte Esterase Urine RBC Urine WBC 11/14/22 11/14/22 11/14/22 17:15 17:15 16:55 RBC Hgb Hct MCHC RDW 14.8 H MPV Immature Gran % (Auto) Neut % (Auto) 84.2 H Lymph % (Auto) 9.9 L Lymph # (Auto) 1.05 L Barnes # (Auto) Immature Gran # Absolute Neutrophils 8.97 H POC VBG pH POC VBG HCO3 POC VBG Total CO2 POC Venous O2 Sat POC VBG Base Excess VBG Lactic Acid POC Total CO2 Anion Gap POC BUN Glucose POC Glucose Calcium AST 66 H Alkaline Phosphatase 146 H C-Reactive Protein Globulin 4.2 H Urine Appearance Turbid A Urine Protein 100 A Urine Nitrate Pos A Ur Leukocyte Esterase 250 A Urine RBC 35 H Urine WBC > 182 H Meds: Medications Acetaminophen (Acetaminophen 325 Mg Tablet) 650 mg PO Q6HP PRN; Protocol PRN Reason: Per Pain Protocol/Fever > 101 Last Admin: 11/15/22 19:03 Dose: 650 mg Hydrocodone Bitart/Acetaminophen (Hydrocodone/Apap 5/325mg Tablet) 1 tab PO Q4HP PRN; Protocol PRN Reason: Per Pain Protocol Last Admin: 11/16/22 09:27 Dose: 1 tab Baclofen (Baclofen 10 Mg Tablet) 15 mg PO QID [facility] Last Admin: 11/16/22 09:26 Dose: 15 mg Baclofen (Baclofen 10 Mg Tablet) 10 mg PO QHS PRN PRN Reason: Muscle Spasm Cefepime HCl (Cefepime 2 Gm Vial) 2 gm IV Q8H [facility]; Protocol Last Admin: 11/16/22 05:56 Dose: 2 gm Docusate Sodium (Docusate Sodium 100 Mg Capsule) 100 mg PO BID [facility] Last Admin: 11/16/22 09:27 Dose: 100 mg Fentanyl (Fentanyl 25 Mcg Patch) 25 mcg TOPICAL Q72H [facility] Last Admin: 11/15/22 15:15 Dose: 25 mcg Gabapentin (Gabapentin 300 Mg Capsule) 300 mg PO TID [facility] Last Admin: 11/16/22 09:26 Dose: 300 mg Hydrocortisone (Hydrocortisone Crm 1% Tube 30gm) 1 dose TOPICAL DAILYP PRN PRN Reason: Rash Levetiracetam (Levetiracetam 500 Mg Tablet) 250 mg PO BID [facility] Last Admin: 11/16/22 09:27 Dose: 250 mg Ondansetron HCl (Ondansetron 4 Mg/2 Ml Vial) 4 mg IV Q6HP PRN PRN Reason: Nausea And Vomiting Last Admin: 11/16/22 03:17 Dose: 4 mg Oxybutynin Chloride (Oxybutynin Chloride 5 Mg Tablet) 5 mg PO BID [facility] Last Admin: 11/16/22 09:26 Dose: 5 mg Pantoprazole Sodium ([facility] 40 Mg [facility]) [facility] Last Admin: 11/16/22 09:27 Dose: 40 mg Paroxetine HCl (Paroxetine 20 Mg Tablet) 40 mg PO [facility] Last Admin: 11/15/22 20:25 Dose: 40 mg Senna (Sennosides 1 Tablet) 2 tab PO [facility] Last Admin: 11/15/22 20:23 Dose: 2 tab Sodium Chloride (0.9 % Sodium Chloride 10 Ml Syringe) 10 ml IV Q8 [facility] Last Admin: 11/16/22 05:56 Dose: 10 ml A/P Assessment and plan (1) Acute upper gastrointestinal bleeding: Status: Acute (2) Chronic paraplegia: Status: Acute (3) Obesity (BMI 30.0-34.9): Status: Acute (4) Complicated UTI (urinary tract infection): Status: Acute Narrative A/P Narrative: At this point, the patient's differential for hematemesis is quite broad. He is not anemic and his H&H is stable. He is not on blood thinners. There is no coagulopathy to reverse. He will be kept n.p.o., started on IV fluids, and gastroenterology will be consulted for possible EGD tomorrow morning. Will be started on Protonix 40 mg IV twice daily. In terms of his complicated urinary tract infection, it is recommended that his Mauro catheter be replaced, and he will be started on cefepime while his blood cultures and urine cultures are pend ing. Medication reconciliation is pending. He would like to be full code and his power of business attorney is his brother who is out of town. 11/15: Scheduled for EGD today to rule out PUD/gastritis. He remains n.p.o. with LR at 100 cc an hour. The patient's blood pressure is still on the low side at 96/45. Of note he remains on cefepime and his urine culture and blood culture are pending. Obtained a CT abdomen pelvis with contrast which revealed right- sided staghorn calculi, bladder calculi and dilated ureter. I discussed the case with Dr. Dickson from urology who reviewed the CT imaging himself and recommended no surgical intervention at this time but close outpatient follow- up. 11/16: EGD revealed gastritis that is resolving. Continue PPI twice daily x 3mo. ADAT today ([place] diet). Urine cx +Kleb oxytoca and Citrobacter. Waiting to exchange mauro (we do not have 30Fr). Continue Cefepime, and switch to Cipro until seen by Urology for staghorn calculi. Plan of Treatment: 1. Exchange mauro 2. Full liquid diet 3. Continue protonix 4. Close urology f/u Time Spent With Patient Time: Total time spent is greater than 50% in coordination of care (as documented) at patient's floor/unit and/or counseling patient: Subsequent: Total time with patient: 25 - 34 minutes QUALITY Stroke Symptom Onset Unknown: No VTE Deep Vein Thrombosis/Pulmonary Embolism Present on Admission: No
--- NOTE | 2022-11-16 14:27 | Internal Med Progress Note ---
SUBJECTIVE Subjective Patient information: Note initiated : 11/16/22 at 2:19 pm Service Date, if different from initiated Date: [] Patient: Clarence Verdugo 62 y/o M admitted on 11/14/22 for Abd. Pain/Vomited Blood. Chief Complaint: [] Principal diagnosis: GIB, CAUTI Interval history: 11/16 Patient underwent EGD yesterday, remained NPO and kept on IVF. He has no active complaints this morning. Continues to have pain seeking behavior 11/17 Review of Systems: denies headache/fever/chills/nausea/vomiting/chest or abdominal pain/cough/dyspnea/diarrhea. Otherwise see above. PHYSICAL EXAM General: Alert, Awake, No acute Distress, obese Eyes/N/T: EOMI, no scleral icterus, Head/Neck: neck supple, full ROM, CV: RRR, No murmurs, Pulm: Clear b/l, no wheezing/rhonchi/rales, no respiratory distress Abd: soft, nontender, +BS x4 Ext: no clubbing/cyanosis/edema, nontender Neuro: Alert, no focal deficits, moves all extremities, sensations intact b/l upper/lower Psychiatric: Skin: warm/dry, normal color Constitutional Vitals: Vital Signs Temp Pulse Resp BP Pulse Ox O2 Del Method O2 Flow Rate 98.0 F 60 18 117/66 95 Room Air 0 11/16/22 08:00 11/16/22 08:00 11/16/22 08:00 11/16/22 08:00 11/16/22 08:00 11/16/22 08:00 11/15/22 12:11 Period Temp Pulse Resp BP Sys/Macias Pulse Ox O2 Del Method O2 Flow Rate Last 24 Hr 97.6 F-98.3 F 60-75 16-73 101-129/57-73 92-96 Room Air-Room Air Intake and Output 11/16/22 11/16/22 11/16/22 03:59 11:59 19:59 Intake Total 3759 583 4759 Output Total 450 Balance 838 157 3974 Weight 105.914 kg Intake & Output: Intake & Output 11/16/22 11/16/22 11/16/22 03:59 11:59 19:59 Intake Total 5488 598 5712 Output Total 450 Balance 605 264 6292 Weight 105.914 kg Intake: IV 1000 1000 Lactated Ringers 1,000 ml @ 100 1000 1000 mls/hr IV .Q10H [facility] Rx#: [id number] Oral 350 Output: Urine Catheter Amount 450 Other: Meal Breakfast Percent of Meal Consumed 50% Feeding Ability Independent Urine Appearance Cloudy Suprapubic Cloudy Urine Color Yellow Suprapubic Yellow Urine Odor Normal Suprapubic Normal OBJ DATA Labs 11/16/22 05:22 11/16/22 05:22 Labs: Abnormal Lab Results 11/16/22 11/16/22 11/15/22 05:22 05:22 05:39 RBC 3.73 L Hgb 10.7 L Hct 35.2 L MCHC 30.4 L RDW 14.8 H MPV Immature Gran % (Auto) 1.1 H Neut % (Auto) Lymph % (Auto) Lymph # (Auto) [place] # (Auto) Immature Gran # 0.08 H Absolute Neutrophils POC VBG pH POC VBG HCO3 POC VBG Total CO2 POC Venous O2 Sat POC VBG Base Excess VBG Lactic Acid POC Total CO2 Anion Gap 7.0 L POC BUN Glucose 123 H 182 H POC Glucose Calcium 8.3 L AST Alkaline Phosphatase C-Reactive Protein 5.00 H Globulin Urine Appearance Urine Protein Urine Nitrate Ur Leukocyte Esterase Urine RBC Urine WBC 11/15/22 11/14/22 11/14/22 05:39 18:43 17:26 RBC 4.07 L Hgb 11.7 L Hct 36.6 L MCHC RDW 14.6 H MPV 8.7 L Immature Gran % (Auto) 0.6 H Neut % (Auto) Lymph % (Auto) Lymph # (Auto) [place] # (Auto) 0.94 H Immature Gran # Absolute Neutrophils POC VBG pH 7.44 H POC VBG HCO3 28.3 H POC VBG Total CO2 30.0 H POC Venous O2 Sat 71.0 H POC VBG Base Excess 4.0 H* VBG Lactic Acid 2.8 H POC Total CO2 33.0 H Anion Gap POC BUN 26 H Glucose POC Glucose 226 H Calcium AST Alkaline Phosphatase C-Reactive Protein Globulin Urine Appearance Urine Protein Urine Nitrate Ur Leukocyte Esterase Urine RBC Urine WBC 11/14/22 11/14/22 11/14/22 17:15 17:15 16:55 RBC Hgb Hct MCHC RDW 14.8 H MPV Immature Gran % (Auto) Neut % (Auto) 84.2 H Lymph % (Auto) 9.9 L Lymph # (Auto) 1.05 L [place] # (Auto) Immature Gran # Absolute Neutrophils 8.97 H POC VBG pH POC VBG HCO3 POC VBG Total CO2 POC Venous O2 Sat POC VBG Base Excess VBG Lactic Acid POC Total CO2 Anion Gap POC BUN Glucose POC Glucose Calcium AST 66 H Alkaline Phosphatase 146 H C-Reactive Protein Globulin 4.2 H Urine Appearance Turbid A Urine Protein 100 A Urine Nitrate Pos A Ur Leukocyte Esterase 250 A Urine RBC 35 H Urine WBC > 182 H Meds: Medications Acetaminophen (Acetaminophen 325 Mg Tablet) 650 mg PO Q6HP PRN; Protocol PRN Reason: Per Pain Protocol/Fever > 101 Last Admin: 11/15/22 19:03 Dose: 650 mg Hydrocodone Bitart/Acetaminophen (Hydrocodone/Apap 5/325mg Tablet) 1 tab PO Q4HP PRN; Protocol PRN Reason: Per Pain Protocol Last Admin: 11/16/22 14:00 Dose: 1 tab Baclofen (Baclofen 10 Mg Tablet) 15 mg PO QID [facility] Last Admin: 11/16/22 14:00 Dose: 15 mg Baclofen (Baclofen 10 Mg Tablet) 10 mg PO QHS PRN PRN Reason: Muscle Spasm Cefepime HCl (Cefepime 2 Gm Vial) 2 gm IV Q8H [facility]; Protocol Last Admin: 11/16/22 05:56 Dose: 2 gm Docusate Sodium (Docusate Sodium 100 Mg Capsule) 100 mg PO BID [facility] Last Admin: 11/16/22 09:27 Dose: 100 mg Fentanyl (Fentanyl 25 Mcg Patch) 25 mcg TOPICAL Q72H [facility] Last Admin: 11/15/22 15:15 Dose: 25 mcg Gabapentin (Gabapentin 300 Mg Capsule) 300 mg PO TID [facility] Last Admin: 11/16/22 14:00 Dose: 300 mg Hydrocortisone (Hydrocortisone Crm 1% Tube 30gm) 1 dose TOPICAL DAILYP PRN PRN Reason: Rash Levetiracetam (Levetiracetam 500 Mg Tablet) 250 mg PO BID [facility] Last Admin: 11/16/22 09:27 Dose: 250 mg Ondansetron HCl (Ondansetron 4 Mg/2 Ml Vial) 4 mg IV Q6HP PRN PRN Reason: Nausea And Vomiting Last Admin: 11/16/22 03:17 Dose: 4 mg Oxybutynin Chloride (Oxybutynin Chloride 5 Mg Tablet) 5 mg PO BID [facility] Last Admin: 11/16/22 09:26 Dose: 5 mg Pantoprazole Sodium (Pantoprazole 40 Mg Vial) 40 mg IV BIDAC [facility] Last Admin: 11/16/22 09:27 Dose: 40 mg Paroxetine HCl (Paroxetine 20 Mg Tablet) 40 mg PO HS [facility] Last Admin: 11/15/22 20:25 Dose: 40 mg Senna (Sennosides 1 Tablet) 2 tab PO HS [facility] Last Admin: 11/15/22 20:23 Dose: 2 tab Sodium Chloride (0.9 % Sodium Chloride 10 Ml Syringe) 10 ml IV Q8 [facility] Last Admin: 11/16/22 14:00 Dose: Not Given A/P Narrative A/P Narrative: A: *upper GIB: 2/2 gastritis -EGD (11/16) by Dr. Sutton *Anemia acute on chronic, blood loss: 2/2 above *UTI(Citrobacter/Klebsiella), complicated: *Paraplegia: *Morbid obesity: BMI 43 *Chronic pain: *Seizure d/o: *Depression: * P: -Continue cefepime, pending final UC/BC -Blackwell exchange -Full liquid diet -Continue Protonix bid -monitor H&H -Monitor UOP/renal function. -Continue home torsemide -Continue home baclofen/pain meds/keppra/SSRI -CM for placement needs -Follow-up with urology outpt -ppx: SCD Time Spent With Patient Time: Total time spent is greater than 50% in coordination of care (as documented) at patient's floor/unit and/or counseling patient: QUALITY Stroke Symptom Onset Unknown: No VTE Deep Vein Thrombosis/Pulmonary Embolism Present on Admission: No
[2022-11-16] MEDS: PARoxetine 20 MG TABLET PO SCH (21:09)
[2022-11-16] MEDS: SENNOSIDES 1 TABLET PO SCH (21:09)
[2022-11-17] MEDS: HYDROcodone/APAP 5/325MG TABLET PO PRN ×2 (05:18→09:28)
[2022-11-17] MEDS: 0.9 % SODIUM CHLORIDE 10 ML SYRINGE IV SCH (05:18)
[2022-11-17] MEDS: CEFEPIME 2 GM VIAL IV SCH (05:18)
[2022-11-17 06:33] LABS: Basophils # (Auto) 0.07 K/mcL (0.00-0.30); Basophils % (Auto) 0.9 % (0.0-2.0); Eosinophils # (Auto) 0.35 K/mcL (0.00-0.70); Eosinophils % (Auto) 4.5 % (0.0-7.0); Hematocrit 36.1 % (40.1-51.0); Hemoglobin 11.2 g/dL (13.7-17.5); Lymphocytes # (Auto) 2.56 K/mcL (1.50-4.80); Lymphocytes % (Auto) 32.7 % (15.5-49.0); Mean Platelet Volume 9.1 fL (8.8-12.5); Monocytes # (Auto) 0.62 K/mcL (0.10-0.90); Monocytes % (Auto) 7.9 % (1.0-12.0); Neutrophils % (Auto) 52.6 % (38.0-78.0); Platelet Count 236 K/mcL (140-440); RBC 3.84 M/mcL (4.63-6.08); Red Cell Distribution Width 14.9 % (11.5-14.5); WBC 7.8 K/mcL (4.5-11.0)
[2022-11-17 06:59] LABS: ALT/SGPT 18 U/L (<40); AST/SGOT 31 U/L (<40); Albumin 2.9 gm/dL (3.2-5.2); Alkaline Phosphatase 92 U/L (39-117); Bilirubin,Direct < 0.2 mg/dL (0-0.3); Bilirubin,Total 0.3 mg/dL (0.1-1.0); Blood Urea Nitrogen 17 mg/dL (8-23); Calcium 8.6 mg/dL (8.6-10.4); Carbon Dioxide 27 mmol/L (22-30); Chloride 102 mmol/L (96-108); Globulin 2.9 gm/dL (2.2-3.7); Glomerular Filtration Rate 101; Glucose 146 mg/dL (70-105); Lactate Dehydrogenase 125 U/L (135-225); Phosphorous 3.2 mg/dL (2.5-4.5); Triglycerides 270 mg/dL (<150); Uric Acid 9.4 mg/dL (2.5-8.0)
[2022-11-17] MEDS ORDERED: PANTOPRAZOLE 40 MG TABLET PO SCH (07:30)
[2022-11-17] MEDS: PANTOPRAZOLE 40 MG VIAL IV SCH (07:43)
--- NOTE | 2022-11-17 08:09 | Internal Med Progress Note ---
SUBJECTIVE Subjective Patient information: Note initiated : 11/17/22 at 8:05 am Service Date, if different from initiated Date: [] Patient: Clarence Verdugo 62 y/o M admitted on 11/14/22 for Abd. Pain/Vomited Blood. Chief Complaint: [] Principal diagnosis: GIB, CAUTI Interval history: 11/16 Patient underwent EGD yesterday, remained NPO and kept on IVF. He has no active complaints this morning. Continues to have pain seeking behavior 11/17 No overnight or new complaints. Blood pressure little soft at times. But he says it typically 100-100/70 at home. Tolerating diet well. No further bleeding. Review of Systems: denies headache/fever/chills/nausea/vomiting/chest or abdominal pain/cough/dyspnea/. Otherwise see above. PHYSICAL EXAM General: Alert, Awake, No acute Distress, obese Eyes/N/T: EOMI, no scleral icterus, Head/Neck: neck supple, full ROM, CV: RRR, No murmurs, Pulm: Clear b/l, no wheezing/rhonchi/rales, no respiratory distress Abd: soft, nontender, +BS x4 Ext: no clubbing/cyanosis/edema, nontender Neuro: Alert, no focal deficits, moves all extremities, sensations intact b/l upper/lower Psychiatric: Skin: warm/dry, normal color Constitutional Vitals: Vital Signs Temp Pulse Resp BP Pulse Ox O2 Del Method O2 Flow Rate 98.6 F 67 14 100/59 93 Room Air 0 11/17/22 07:55 11/17/22 07:55 11/17/22 07:55 11/17/22 07:55 11/17/22 07:55 11/17/22 07:55 11/15/22 12:11 Period Temp Pulse Resp BP Sys/Macias Pulse Ox O2 Del Method O2 Flow Rate Last 24 Hr 97.3 F-98.6 F 60-69 14-18 91-110/55-72 92-96 Room Air-Room Air Intake and Output 11/16/22 11/17/22 11/17/22 19:59 03:59 11:59 Intake Total 1300 960 Output Total 400 800 Balance 900 160 Weight 105.687 kg Intake & Output: Intake & Output 11/16/22 11/17/22 11/17/22 19:59 03:59 11:59 Intake Total 1300 960 Output Total 400 800 Balance 900 160 Weight 105.687 kg Intake: IV 1000 Lactated Ringers 1,000 ml @ 100 1000 mls/hr IV .Q10H [facility] Rx#: [id number] Oral 300 960 Output: Urine Catheter Amount 400 800 Other: Meal Lunch Percent of Meal Consumed 75% Urine Appearance Clear Clear Sediment Suprapubic Clear Urine Color Yellow Yellow Dark Yellow Suprapubic Yellow Dark Yellow Urine Odor Strong Strong Suprapubic Strong OBJ DATA Labs 11/17/22 05:11 11/17/22 05:11 Labs: Abnormal Lab Results 11/17/22 11/17/22 11/16/22 05:11 05:11 05:22 RBC 3.84 L Hgb 11.2 L Hct 36.1 L MCHC RDW 14.9 H MPV Immature Gran % (Auto) 1.4 H Neut % (Auto) Lymph % (Auto) Lymph # (Auto) [place] # (Auto) Immature Gran # 0.11 H Absolute Neutrophils POC VBG pH POC VBG HCO3 POC VBG Total CO2 POC Venous O2 Sat POC VBG Base Excess VBG Lactic Acid POC Total CO2 Anion Gap 7.0 L POC BUN Glucose 146 H 123 H POC Glucose Uric Acid 9.4 H Calcium 8.3 L GGT 100 H AST Alkaline Phosphatase Lactate Dehydrogenase 125 L C-Reactive Protein Total Protein 5.8 L Albumin 2.9 L Globulin Triglycerides 270 H Urine Appearance Urine Protein Urine Nitrate Ur Leukocyte Esterase Urine RBC Urine WBC 11/16/22 11/15/22 11/15/22 05:22 05:39 05:39 RBC 3.73 L 4.07 L Hgb 10.7 L 11.7 L Hct 35.2 L 36.6 L MCHC 30.4 L RDW 14.8 H 14.6 H MPV 8.7 L Immature Gran % (Auto) 1.1 H 0.6 H Neut % (Auto) Lymph % (Auto) Lymph # (Auto) [place] # (Auto) 0.94 H Immature Gran # 0.08 H Absolute Neutrophils POC VBG pH POC VBG HCO3 POC VBG Total CO2 POC Venous O2 Sat POC VBG Base Excess VBG Lactic Acid POC Total CO2 Anion Gap 7.0 L POC BUN Glucose 182 H POC Glucose Uric Acid Calcium GGT AST Alkaline Phosphatase Lactate Dehydrogenase C-Reactive Protein 5.00 H Total Protein Albumin Globulin Triglycerides Urine Appearance Urine Protein Urine Nitrate Ur Leukocyte Esterase Urine RBC Urine WBC 11/14/22 11/14/22 11/14/22 18:43 17:26 17:15 RBC Hgb Hct MCHC RDW MPV Immature Gran % (Auto) Neut % (Auto) Lymph % (Auto) Lymph # (Auto) [place] # (Auto) Immature Gran # Absolute Neutrophils POC VBG pH 7.44 H POC VBG HCO3 28.3 H POC VBG Total CO2 30.0 H POC Venous O2 Sat 71.0 H POC VBG Base Excess 4.0 H* VBG Lactic Acid 2.8 H POC Total CO2 33.0 H Anion Gap POC BUN 26 H Glucose POC Glucose 226 H Uric Acid Calcium GGT AST 66 H Alkaline Phosphatase 146 H Lactate Dehydrogenase C-Reactive Protein Total Protein Albumin Globulin 4.2 H Triglycerides Urine Appearance Urine Protein Urine Nitrate Ur Leukocyte Esterase Urine RBC Urine WBC 11/14/22 11/14/22 17:15 16:55 RBC Hgb Hct MCHC RDW 14.8 H MPV Immature Gran % (Auto) Neut % (Auto) 84.2 H Lymph % (Auto) 9.9 L Lymph # (Auto) 1.05 L [place] # (Auto) Immature Gran # Absolute Neutrophils 8.97 H POC VBG pH POC VBG HCO3 POC VBG Total CO2 POC Venous O2 Sat POC VBG Base Excess VBG Lactic Acid POC Total CO2 Anion Gap POC BUN Glucose POC Glucose Uric Acid Calcium GGT AST Alkaline Phosphatase Lactate Dehydrogenase C-Reactive Protein Total Protein Albumin Globulin Triglycerides Urine Appearance Turbid A Urine Protein 100 A Urine Nitrate Pos A Ur Leukocyte Esterase 250 A Urine RBC 35 H Urine WBC > 182 H Meds: Medications Acetaminophen (Acetaminophen 325 Mg Tablet) 650 mg PO Q6HP PRN; Protocol PRN Reason: Per Pain Protocol/Fever > 101 Last Admin: 11/15/22 19:03 Dose: 650 mg Hydrocodone Bitart/Acetaminophen (Hydrocodone/Apap 5/325mg Tablet) 1 tab PO Q4HP PRN; Protocol PRN Reason: Per Pain Protocol Last Admin: 11/17/22 05:18 Dose: 1 tab Baclofen (Baclofen 10 Mg Tablet) 15 mg PO QID TACOS Last Admin: 11/16/22 21:08 Dose: 15 mg Baclofen (Baclofen 10 Mg Tablet) 10 mg PO QHS PRN PRN Reason: Muscle Spasm Cefepime HCl (Cefepime 2 Gm Vial) 2 gm IV Q8H [facility]; Protocol Last Admin: 11/17/22 05:18 Dose: 2 gm Docusate Sodium (Docusate Sodium 100 Mg Capsule) 100 mg PO BID [facility] Last Admin: 11/16/22 21:08 Dose: 100 mg Fentanyl (Fentanyl 25 Mcg Patch) 25 mcg TOPICAL Q72H [facility] Last Admin: 11/15/22 15:15 Dose: 25 mcg Gabapentin (Gabapentin 300 Mg Capsule) 300 mg PO TID [facility] Last Admin: 11/16/22 21:08 Dose: 300 mg Hydrocortisone (Hydrocortisone Crm 1% Tube 30gm) 1 dose TOPICAL DAILYP PRN PRN Reason: Rash Levetiracetam (Levetiracetam 500 Mg Tablet) 250 mg PO BID [facility] Last Admin: 11/16/22 21:09 Dose: 250 mg Ondansetron HCl (Ondansetron 4 Mg/2 Ml Vial) 4 mg IV Q6HP PRN PRN Reason: Nausea And Vomiting Last Admin: 11/16/22 03:17 Dose: 4 mg Oxybutynin Chloride (Oxybutynin Chloride 5 Mg Tablet) 5 mg PO BID [facility] Last Admin: 11/16/22 21:08 Dose: 5 mg Pantoprazole Sodium (Pantoprazole 40 Mg Tablet) 40 mg PO BIDAC [facility] Last Admin: 11/17/22 07:39 Dose: 40 mg Paroxetine HCl (Paroxetine 20 Mg Tablet) 40 mg PO HS [facility] Last Admin: 11/16/22 21:09 Dose: 40 mg Senna (Sennosides 1 Tablet) 2 tab PO HS [facility] Last Admin: 11/16/22 21:09 Dose: 2 tab Sodium Chloride (0.9 % Sodium Chloride 10 Ml Syringe) 10 ml IV Q8 [facility] Last Admin: 11/17/22 05:18 Dose: 10 ml A/P Narrative A/P Narrative: A: *upper GIB: 2/2 gastritis -EGD (11/16) by Dr. Sutton *Anemia acute on chronic, blood loss: 2/2 above *UTI(Citrobacter/Klebsiella), complicated: *Paraplegia: *Morbid obesity: BMI 43 *Chronic pain: *Depression: * P: -Continue cefepime, to likely cipro -[facility] exchange, -Full liquid diet advance as tolerated -Continue Protonix bid -monitor H&H -Monitor UOP/renal function. -hold home torsemide for soft bp -Continue home baclofen/pain meds/keppra/SSRI -CM for placement needs -Follow-up with urology outpt -ppx: SCD Time Spent With Patient Time: Total time spent is greater than 50% in coordination of care (as documented) at patient's floor/unit and/or counseling patient: Subsequent: Total time with patient: 35 - 49 minutes QUALITY Stroke Symptom Onset Unknown: No VTE Deep Vein Thrombosis/Pulmonary Embolism Present on Admission: No
[2022-11-17] MEDS: SUCRALFATE 1 GM/10 ML ORAL.SUSP PO SCH ×2 (08:53→12:03)
[2022-11-17] MEDS: BACLOFEN 10 MG TABLET PO SCH (08:54)
[2022-11-17] MEDS: OXYBUTYNIN CHLORIDE 5 MG TABLET PO SCH (08:55)
[2022-11-17] MEDS: DOCUSATE SODIUM 100 MG CAPSULE PO SCH (08:55)
[2022-11-17] MEDS: levETIRAcetam 500 MG TABLET PO SCH (08:55)
[2022-11-17] MEDS: GABAPENTIN 300 MG CAPSULE PO SCH (08:55)
--- NOTE | 2022-11-17 10:20 | Discharge Summary ---
Discharge Provider Provider IMPORTANT FOLLOW-UP INFORMATION FOR PCP: Patient information: Note initiated : 11/17/22 at 10:18 am Service Date, if different from initiated Date: [] Patient: Clarence Verdugo a 62 y/o M admitted on 11/14/22 for Abd. Pain/Vomited Blood. Chief Complaint: [] Date of admission: 11/14/22 21:39 Discharge date: 11/17/22 Primary care physician: ILDA Gay Consults: 11/14/22 Consult to Physician [CONS] Stat Comment: Consulting Provider: Moises Sutton Reason For Exam: Physician to Consult Consult to Physician [CONS] Stat Comment: Consulting Provider: Kendall Dickson Reason For Exam: Physician to Consult 11/14/22 21:41 Consult to Physician [CONS] Stat Comment: Consulting Provider: Moises Sutton Reason For Exam: Physician to Consult COURSE Hospital Course Hospital course: History of present illness: Mr. Verdugo is a 62 year old M with a past medical history significant for paraplegia, decubitus wounds, suprapubic catheter, seizures, and insulin- dependent diabetes mellitus who presents to the hospital with 3 to 4-day history of abdominal discomfort, inappetence associated with nausea and vomiting. The patient overall is a poor historian and simply states that he was feeling unwell over the last several days. He has not been eating or drinking much. He denies NSAID or aspirin use. He denies any history of heavy drinking. The patient states that he does have a prior history of GERD however does not take medications for acid reflux. He does have a suprapubic catheter in place which was recently changed 1 week ago he states. He comes from adult family home. On arrival he was hemodynamically stable and afebrile. His white blood cell count was 10.6, H&H was 13.8 and 43.4 and his creatinine was 0.7. His UA was grossly abnormal. His lactic acid was elevated at 2.8. He was found to have a blood pressure of 90/53 and a heart rate of 100 bpm. The hospital service was asked admit the patient for further management and evaluation 11/15 The patient was resting comfortably in bed. I was notified by the RN that he does have an old fentanyl patch. He is scheduled for EGD today. 11/16 Patient underwent EGD yesterday, remained NPO and kept on IVF. He has no active complaints this morning. Continues to have pain seeking behavior 11/17 No overnight or new complaints. Blood pressure little soft at times. But he says it typically 100-100/70 at home. Tolerating diet well. No further bleeding. A: *upper GIB: 2/2 gastritis -EGD (11/16) by Dr. Sutton *Anemia acute on chronic, blood loss: 2/2 above *UTI(Citrobacter/Klebsiella), complicated: *Paraplegia: *Morbid obesity: BMI 43 *Chronic pain: *Depression: * P: -abx -Continue Protonix bid Discharge diagnosis: Upper GI bleed secondary to gastritis acute blood loss anemia UTI Secondary discharge diagnosis: Paraplegia morbid obesity chronic pain depression Time Spent with Patient Time attestation: Total time spent providing and/or coordinating discharge services: Time spent: Greater than 30 minutes EXAM Constitutional Vitals: Temp Pulse Resp BP Pulse Ox O2 Del Method O2 Flow Rate 98.1 F 65 16 105/61 95 Room Air 0 11/17/22 10:00 11/17/22 10:00 11/17/22 10:00 11/17/22 10:00 11/17/22 10:00 11/17/22 10:00 11/17/22 10:00 Discharge Data Data Completed and Pending Labs on day of discharge: Labs from last 24 hours 11/17/22 11/17/22 05:11 05:11 WBC 7.8 RBC 3.84 L Hgb 11.2 L Hct 36.1 L MCV 94.0 MCH 29.2 MCHC 31.0 RDW 14.9 H Plt Count 236 MPV 9.1 Immature Gran % (Auto) 1.4 H Neut % (Auto) 52.6 Lymph % (Auto) 32.7 Rains % (Auto) 7.9 Eos % (Auto) 4.5 Baso % (Auto) 0.9 Lymph # (Auto) 2.56 Rains # (Auto) 0.62 Eos # (Auto) 0.35 Baso # (Auto) 0.07 Immature Gran # 0.11 H Absolute Neutrophils 4.13 Sodium 136 Potassium 3.7 Chloride 102 Carbon Dioxide 27 Anion Gap 7.0 L BUN 17 Creatinine 0.7 GFR Calculation 101 Glucose 146 H Uric Acid 9.4 H Calcium 8.6 Phosphorus 3.2 Magnesium 2.1 Total Bilirubin 0.3 Direct Bilirubin < 0.2 GGT 100 H AST 31 ALT 18 Alkaline Phosphatase 92 Lactate Dehydrogenase 125 L Total Protein 5.8 L Albumin 2.9 L Globulin 2.9 Albumin/Globulin Ratio 1.0 Triglycerides 270 H Preliminary micro results at discharge 11/14/22 17:25 Blood Culture - Preliminary Blood 11/14/22 17:20 Blood Culture - Preliminary Blood Discharge Plan Patient/Caregiver Discharge Instructions Activity: increase activity as tolerated Diet: Regular Diet Prescriptions: Continued baclofen 5 mg tablet 15 mg PO QID Rx Instructions: 15mg QID gabapentin 300 mg capsule 300 mg PO Q8H docusate sodium 100 mg tablet 100 mg PO BID loratadine 10 mg capsule 10 mg PO HS bisacodyl [Dulcolax (bisacodyl)] 5 mg tablet,delayed release (DR/EC) 5 mg PO .COMPLEX Rx Instructions: 5 mg PO unknown; unknown Glucagon (HCl) Emergency Kit 1 mg recon soln 1 mg IM PRN PRN (Reason: Hypoglycemia) Rx Instructions: give for blood sugar under 70 & unable to swallow recheck in 15 min; if improving, may repeat metformin 500 mg tablet 1,000 mg PO BIDCC baclofen 10 mg tablet 10 mg PO QHS PRN (Reason: Muscle Spasm) Patient Comments: may take 3 tables qhs prn Fleet Enema 19-7 gram/118 mL enema 118 ml CA ONCE PRN (Reason: Constipation) Rx Instructions: give within 12 hours of suppository if no BM hydrocodone-acetaminophen 5-325 mg tablet 1 tab PO QID polyethylene glycol 3350 [Miralax] 17 gram/dose powder 17 g PO BID ondansetron 4 mg tablet,disintegrating 4 mg PO Q4H PRN (Reason: Nausea) simethicone [Gas Relief (simethicone)] 80 mg tablet,chewable 160 mg PO QID calcium carbonate [Tums Ultra] 400 mg calcium (1,000 mg) tablet,chewable 400 mg PO Q4H PRN (Reason: Heartburn) torsemide 10 MG tablet 20 mg PO BID oxybutynin chloride 5 mg tablet 5 mg PO BID glipizide 5 mg Tablet Extended Release 24hr 5 mg PO ACB fentanyl patch 25 mcg transdermal Q72H methenamine hippurate tablet 1 g PO 0630,1430 paroxetine HCl 40 mg tablet 40 mg PO HS sennosides [senna] 8.6 mg Tablet 17.2 mg PO BID carboxymethylcellulose sodium [Refresh Tears] 0.5 % Drops 1 drp OPHTHALMIC (EYE) BID hydrocortisone 1 % Cream 1 applic TOPICAL DAILY Daily Multivitamin-Minerals Tablet 1 tab PO DAILY magnesium 200 mg Tablet 400 mg PO BID hydrocodone-acetaminophen 5-325 mg Tablet 1 tab PO HS PRN (Reason: Pain) Rx Instructions: give between 2000 and 0500 PRN melatonin 3 mg Tablet 3 mg PO HS PRN (Reason: Insomnia) magnesium hydroxide 400 mg/5 mL Suspension 30 ml PO QDAY PRN (Reason: Constipation) Rx Instructions: PRN no BM in 3 days bisacodyl [Dulcolax (bisacodyl)] 10 mg Suppository 10 mg CA QDAY PRN (Reason: Constipation) bisacodyl 5 mg Tablet 10 mg PO PRN PRN (Reason: Constipation) phenol Liquid 1 ea MISCELLANEOUS Q2H PRN (Reason: Sore Throat) Rx Instructions: Give 30cc per dose potassium chloride 10 mEq capsule, extended release 10 meq PO BIDCC bisacodyl [Dulcolax (bisacodyl)] 10 mg suppository 10 mg CA ONCE PRN (Reason: Constipation) Patient Comments: denies using lately "it doesn't work" and none documented at facility this month levetiracetam 500 mg tablet 250 mg PO BID Qty: 30 0RF Patient Comments: Dr. Smith RX Follow Up Plan Follow up with: Montez Sanchez ARNP [Primary Care Provider] - Patient Disposition: Xfer SNF Prognosis: Fair Rehab Potential: Fair I certify that the patient requires SNF services: Yes Overall status at discharge: patient is progressing back to baseline Discharge Orders: Discharge Order (Routine); Ordered 11/17/22 Ordered By: Aristeo Smith QUALITY VTE Deep Vein Thrombosis/Pulmonary Embolism Present on Admission: No
== END 2022-11-17 12:27 | DRG 378 ==
LOC: ED 16:38 → MEDSUR 21:39
PROVIDERS: ADMIT Student in an Organized Health Care Education/Training Program; ATTEND Internal Medicine

== ENCOUNTER 2024-04-23 09:00 | Inpatient (IN) ==
[2024-04-23 10:33] LABS: ALT/SGPT 24 U/L (<40); AST/SGOT 55 U/L (<40); Albumin 4.2 gm/dL (3.2-5.2); Albumin/Globulin Ratio 0.9 (1.0-2.3); Alkaline Phosphatase 190 U/L (39-117); Bilirubin,Total 0.7 mg/dL (0.1-1.0); Blood Urea Nitrogen 23 mg/dL (8-23); Calcium 10.4 mg/dL (8.6-10.4); Carbon Dioxide 24 mmol/L (22-30); Chloride 93 mmol/L (96-108); Globulin 4.6 gm/dL (2.2-3.7); Glomerular Filtration Rate 100; Glucose 153 mg/dL (70-105); Potassium 4.4 mmol/L (3.3-5.1); Sodium 137 mmol/L (133-145)
[2024-04-23 10:44] LABS: Appearance,Urine Clear (Clear); Bilirubin,Urine Negative (Negative); Color,Urine Yellow; Culture Indicated,Urine Yes; Glucose,Urine (UA) Negative (Negative); Ketones,Urine Negative (Negative); Leukocyte Esterase,Urine Moderate /uL (Negative); Nitrate,Urine Negative (Negative); Protein,Urine 30 mg/dL (Negative); Specific Gravity,Urine 1.015 (1.000-1.035); Urine Amorphous Crystals Few /hpf; Urine Blood Small ery/mcL (Negative); Urine RBC 10 /hpf (0-3); Urine Squamous Epithelial Cell 0 /hpf (0-4); Urine WBC 30 /hpf (0-4); Urobilinogen,Urine Normal
[2024-04-23 10:49] LABS: Prothrombin Time 13.3 sec (11.9-14.5)
[2024-04-23] MEDS: 0.9 % SODIUM CHLORIDE 1,000 ML IV ONE (12:03)
[2024-04-23 12:04] LABS: Basophils # (Auto) 0.03 K/mcL (0.00-0.30); Basophils % (Auto) 0.2 % (0.0-2.0); Eosinophils # (Auto) 0.53 K/mcL (0.00-0.70); Eosinophils % (Auto) 4.2 % (0.0-7.0); Hemoglobin 15.2 g/dL (13.7-17.5); Lymphocytes # (Auto) 0.73 K/mcL (1.50-4.80); Lymphocytes % (Auto) 5.7 % (15.5-49.0); Mean Cell Volume 84.8 fL (80.0-100.0); Mean Platelet Volume 9.3 fL (8.8-12.5); Monocytes # (Auto) 0.21 K/mcL (0.10-0.90); Monocytes % (Auto) 1.7 % (1.0-12.0); Neutrophils % (Auto) 87.5 % (38.0-78.0); Platelet Count 467 K/mcL (140-440); RBC 5.78 M/mcL (4.63-6.08); Red Cell Distribution Width 17.2 % (11.5-14.5); WBC 12.7 K/mcL (4.5-11.0)
[2024-04-23] MEDS: CEFEPIME 2 GM VIAL IV ONE (12:24)
[2024-04-23] MEDS: VANCOMYCIN 1,500 MG in 0.9 % SODIUM CHLORIDE 500 ML IV ONE (13:02)
[2024-04-23] MEDS ORDERED: ONDANSETRON 4 MG/2 ML VIAL IV PRN (15:13)
[2024-04-23] MEDS ORDERED: LACTULOSE 20 GM/30 ML ORAL.SOL PO PRN (15:13)
[2024-04-23] MEDS ORDERED: VANCOMYCIN PER PHARMACY IV SCH (15:13)
[2024-04-23] MEDS ORDERED: SENNOSIDES 1 TABLET PO PRN (15:13)
[2024-04-23] MEDS ORDERED: DEXTROSE 50% 50 ML VIAL IV PRN (15:13)
[2024-04-23] MEDS ORDERED: DEXTROSE 31 GM ORAL.SUSP PO PRN (15:13)
[2024-04-23] MEDS: ACETAMINOPHEN 325 MG TABLET PO PRN (15:41)
[2024-04-23] MEDS: 0.9 % SODIUM CHLORIDE 1,000 ML IV SCH (15:45)
[2024-04-23] MEDS: 0.9 % SODIUM CHLORIDE 10 ML SYRINGE IV SCH (15:47)
[2024-04-23 16:09] LABS: ALT/SGPT 27 U/L (<40); AST/SGOT 49 U/L (<40); Albumin 3.6 gm/dL (3.2-5.2); Albumin/Globulin Ratio 0.9 (1.0-2.3); Alkaline Phosphatase 157 U/L (39-117); Bilirubin,Direct 0.3 mg/dL (<0.3); Bilirubin,Total 0.7 mg/dL (0.1-1.0); Blood Urea Nitrogen 23 mg/dL (8-23); C-Reactive Protein 6.53 mg/dL (0.03-0.80); Calcium 9.9 mg/dL (8.6-10.4); Carbon Dioxide 22 mmol/L (22-30); Chloride 99 mmol/L (96-108); Globulin 3.8 gm/dL (2.2-3.7); Glomerular Filtration Rate 100; Glucose 174 mg/dL (70-105); Lactate Dehydrogenase 128 U/L (135-225); Potassium 4.8 mmol/L (3.3-5.1); Sodium 136 mmol/L (133-145); Triglycerides 341 mg/dL (<150); Uric Acid 8.6 mg/dL (2.5-8.0)
[2024-04-23] MEDS: MEROPENEM 1 GM in 0.9 % SODIUM CHLORIDE 50 ML IV SCH (16:18)
[2024-04-23] MEDS: INSULIN LISPRO 1 UNIT/0.01 ML UNIT SQ SCH (16:28)
[2024-04-23] MEDS: HYDROcodone/APAP 5/325MG TABLET PO PRN (17:53)
[2024-04-23] MEDS: DOCUSATE SODIUM 100 MG CAPSULE PO SCH (21:37)
[2024-04-23] MEDS: VANCOMYCIN 1,250 MG in 0.9 % SODIUM CHLORIDE 500 ML IV SCH (21:38)
[2024-04-24 06:00] LABS: Basophils # (Auto) 0.02 K/mcL (0.00-0.30); Basophils % (Auto) 0.2 % (0.0-2.0); Eosinophils # (Auto) 0.47 K/mcL (0.00-0.70); Hemoglobin 10.9 g/dL (13.7-17.5); Lymphocytes # (Auto) 1.59 K/mcL (1.50-4.80); Lymphocytes % (Auto) 13.4 % (15.5-49.0); Mean Cell Volume 86.6 fL (80.0-100.0); Mean Corpuscular HGB Conc 31.1 g/dL (31.0-36.0); Mean Platelet Volume 9.2 fL (8.8-12.5); Monocytes # (Auto) 0.47 K/mcL (0.10-0.90); Neutrophils % (Auto) 78.1 % (38.0-78.0); Platelet Count 302 K/mcL (140-440); RBC 4.04 M/mcL (4.63-6.08); Red Cell Distribution Width 16.8 % (11.5-14.5); WBC 11.9 K/mcL (4.5-11.0)
[2024-04-24 06:15] LABS: ALT/SGPT 26 U/L (<40); AST/SGOT 42 U/L (<40); Albumin 3.2 gm/dL (3.2-5.2); Alkaline Phosphatase 130 U/L (39-117); Bilirubin,Direct 0.3 mg/dL (<0.3); Bilirubin,Total 0.6 mg/dL (0.1-1.0); Blood Urea Nitrogen 19 mg/dL (8-23); Calcium 8.4 mg/dL (8.6-10.4); Carbon Dioxide 24 mmol/L (22-30); Chloride 101 mmol/L (96-108); Globulin 3.3 gm/dL (2.2-3.7); Glomerular Filtration Rate 107; Glucose 144 mg/dL (70-105); Lactate Dehydrogenase 102 U/L (135-225); Phosphorous 3.1 mg/dL (2.5-4.5); Potassium 3.6 mmol/L (3.3-5.1); Sodium 136 mmol/L (133-145); Triglycerides 202 mg/dL (<150); Uric Acid 7.6 mg/dL (2.5-8.0)
[2024-04-24] MEDS ORDERED: SIMETHICONE 80 MG TAB.CHEW PO PRN (08:08)
[2024-04-24] MEDS: MIDODRINE HCL 10 MG TABLET PO SCH (08:32)
[2024-04-24] MEDS: ENOXAPARIN 40 MG/0.4 ML SYRINGE SQ SCH (08:42)
[2024-04-24] MEDS: SENNOSIDES 1 TABLET PO SCH (08:43)
[2024-04-24] MEDS: PARoxetine 20 MG TABLET PO SCH (08:43)
[2024-04-24] MEDS: levETIRAcetam 500 MG TABLET PO SCH (08:43)
[2024-04-24] MEDS: OMEPRAZOLE 20 MG CAPSULE PO SCH (08:44)
[2024-04-24] MEDS: GABAPENTIN 300 MG CAPSULE PO SCH (08:44)
[2024-04-24] MEDS: SUCRALFATE 1 GM TABLET PO SCH (08:44)
[2024-04-24] MEDS: OXYBUTYNIN CHLORIDE 5 MG TABLET PO SCH (08:44)
[2024-04-24] MEDS: POLYETHYLENE GLYCOL 3350 17 GM PACKET PO SCH (08:45)
[2024-04-24] MEDS: BACLOFEN 10 MG TABLET PO SCH (08:45)
[2024-04-24] MEDS: HYDROcodone/APAP 5/325MG TABLET PO SCH (08:45)
[2024-04-24] MEDS: MIRABEGRON 50 MG PO SCH (08:46)
[2024-04-24] MEDS: fentaNYL 25 MCG PATCH TD SCH (09:32)
[2024-04-24] MEDS: MIDODRINE 5 MG TABLET PO SCH (12:03)
[2024-04-24] MEDS: POTASSIUM CHLORIDE 10 MEQ TABLET PO SCH (16:34)
[2024-04-24] MEDS: LORATADINE 10 MG TABLET PO SCH (20:49)
[2024-04-24] MEDS: MELATONIN 3 MG TABLET PO PRN (20:50)
[2024-04-25 05:45] LABS: Basophils # (Auto) 0.03 K/mcL (0.00-0.30); Basophils % (Auto) 0.3 % (0.0-2.0); Eosinophils # (Auto) 0.85 K/mcL (0.00-0.70); Eosinophils % (Auto) 9.3 % (0.0-7.0); Hematocrit 34.8 % (40.1-51.0); Hemoglobin 10.6 g/dL (13.7-17.5); Mean Cell Volume 88.5 fL (80.0-100.0); Mean Corpuscular HGB Conc 30.5 g/dL (31.0-36.0); Monocytes # (Auto) 0.59 K/mcL (0.10-0.90); Monocytes % (Auto) 6.5 % (1.0-12.0); Neutrophils % (Auto) 60.6 % (38.0-78.0); Platelet Count 265 K/mcL (140-440); RBC 3.93 M/mcL (4.63-6.08); Red Cell Distribution Width 17.2 % (11.5-14.5); WBC 9.1 K/mcL (4.5-11.0)
[2024-04-25 06:30] LABS: ALT/SGPT 20 U/L (<40); AST/SGOT 31 U/L (<40); Albumin 3.1 gm/dL (3.2-5.2); Alkaline Phosphatase 121 U/L (39-117); Bilirubin,Direct < 0.2 mg/dL (0-0.3); Bilirubin,Total 0.4 mg/dL (0.1-1.0); Blood Urea Nitrogen 14 mg/dL (8-23); Calcium 8.4 mg/dL (8.6-10.4); Carbon Dioxide 22 mmol/L (22-30); Chloride 103 mmol/L (96-108); Globulin 3.1 gm/dL (2.2-3.7); Glomerular Filtration Rate 107; Glucose 177 mg/dL (70-105); Lactate Dehydrogenase 105 U/L (135-225); Phosphorous 2.5 mg/dL (2.5-4.5); Potassium 3.8 mmol/L (3.3-5.1); Sodium 134 mmol/L (133-145); Triglycerides 234 mg/dL (<150); Uric Acid 7.4 mg/dL (2.5-8.0)
[2024-04-25] MEDS: NYSTATIN POWDER BOTTLE 15GM TOPICAL SCH (09:16)
[2024-04-25] MEDS: CEFEPIME 2 GM VIAL IV SCH (12:40)
[2024-04-25] MEDS: FOSFOMYCIN TROMETHAMINE 3 GM PACKET PO SCH (14:22)
[2024-04-26 06:51] LABS: Basophils # (Auto) 0.03 K/mcL (0.00-0.30); Basophils % (Auto) 0.5 % (0.0-2.0); Eosinophils % (Auto) 14.2 % (0.0-7.0); Hematocrit 33.9 % (40.1-51.0); Hemoglobin 10.6 g/dL (13.7-17.5); Lymphocytes # (Auto) 1.67 K/mcL (1.50-4.80); Lymphocytes % (Auto) 26.3 % (15.5-49.0); Mean Cell Volume 87.4 fL (80.0-100.0); Mean Corpuscular HGB Conc 31.3 g/dL (31.0-36.0); Monocytes # (Auto) 0.41 K/mcL (0.10-0.90); Monocytes % (Auto) 6.5 % (1.0-12.0); Neutrophils % (Auto) 51.7 % (38.0-78.0); Platelet Count 274 K/mcL (140-440); RBC 3.88 M/mcL (4.63-6.08); Red Cell Distribution Width 16.9 % (11.5-14.5); WBC 6.3 K/mcL (4.5-11.0)
[2024-04-26 07:11] LABS: Blood Urea Nitrogen 12 mg/dL (8-23); Calcium 8.5 mg/dL (8.6-10.4); Carbon Dioxide 21 mmol/L (22-30); Chloride 103 mmol/L (96-108); Glomerular Filtration Rate 107; Glucose 134 mg/dL (70-105); Sodium 134 mmol/L (133-145)
[2024-04-26] MEDS ORDERED: FLEETS ADULT 1 DOSE ENEMA PR PRN (09:07)
[2024-04-26] MEDS ORDERED: BISACODYL 10 MG SUPP.RECT PR PRN (09:07)
[2024-04-26] MEDS ORDERED: CALCIUM CARBONATE 500 MG TAB.CHEW CHEWED PRN (09:11)
[2024-04-26] MEDS: CARBOXYMETHYLCELLULOSE SODIUM 1 EACH DROPER.GEL OU SCH (20:54)
[2024-04-26] MEDS: MULTIVIT,THER IRON,CA,FA & MIN 1 TABLET PO SCH (20:55)
[2024-04-27 06:52] LABS: Blood Urea Nitrogen 12 mg/dL (8-23); Calcium 8.8 mg/dL (8.6-10.4); Carbon Dioxide 23 mmol/L (22-30); Chloride 104 mmol/L (96-108); Glomerular Filtration Rate 115; Glucose 136 mg/dL (70-105); Potassium 4.3 mmol/L (3.3-5.1); Sodium 138 mmol/L (133-145)
[2024-04-27 06:56] LABS: Basophils # (Auto) 0.06 K/mcL (0.00-0.30); Basophils % (Auto) 0.8 % (0.0-2.0); Eosinophils # (Auto) 0.75 K/mcL (0.00-0.70); Eosinophils % (Auto) 9.9 % (0.0-7.0); Hematocrit 33.6 % (40.1-51.0); Hemoglobin 10.5 g/dL (13.7-17.5); Lymphocytes # (Auto) 2.17 K/mcL (1.50-4.80); Lymphocytes % (Auto) 28.7 % (15.5-49.0); Mean Cell Volume 86.6 fL (80.0-100.0); Mean Corpuscular HGB Conc 31.3 g/dL (31.0-36.0); Mean Platelet Volume 8.9 fL (8.8-12.5); Monocytes # (Auto) 0.52 K/mcL (0.10-0.90); Monocytes % (Auto) 6.9 % (1.0-12.0); Platelet Count 312 K/mcL (140-440); RBC 3.88 M/mcL (4.63-6.08); WBC 7.6 K/mcL (4.5-11.0)
== END 2024-04-28 12:20 | DRG 871 ==
LOC: ED 09:00 → ICU 14:56 → MEDSUR 04-26 20:01
PROVIDERS: ADMIT Internal Medicine; ATTEND Student in an Organized Health Care Education/Training Program